=== PATIENT | female | born 1950 | race Caucasian/White ===

== ENCOUNTER 2016-08-03 10:12 | Outpatient (CLI) | payer OTHER | END 2016-08-03 10:13 | disposition home or self-care (01) | DX: M16.11 Unilateral primary osteoarthritis, right hip (principal); M25.751 Osteophyte, right hip ==

== ENCOUNTER 2017-07-12 11:15 | Outpatient (CLI) | payer MEDICARE, OTHER | END 2017-07-12 11:16 | disposition home or self-care (01) | LOC: SC 11:15 | PROVIDERS: ATTEND Internal Medicine Pulmonary Disease | DX: G47.33 Obstructive sleep apnea (adult) (pediatric) (principal) | CPT/HCPCS: 99203; G0463; 99212 ==

== ENCOUNTER 2017-08-26 13:22 | Outpatient (CLI) | payer MEDICARE, OTHER ==
--- NOTE | 2017-08-28 19:03 | DEXA Report ---
DEXA SCAN: 08/26/2017 CLINICAL INDICATION: Postmenopausal. TECHNIQUE: Dual energy x-ray absorptiometry (DXA) was performed on a Nu-B-2B system. Regions measured are the AP spine, femoral neck, and, if needed, forearm. COMPARISON: None. In accordance with the International Society for Clinical Densitometry (ISCD) guidelines, data from previous exams may be reanalyzed using current recommendations and techniques. This is done to allow a more accurate basis for comparison with the current study. FINDINGS Data for the lumbar spine is as follows: REGION BMD (g/cm/cm) T-SCORE Z-SCORE L1 1.012 -1.0 -0.5 L2 1.094 -0.9 -0.4 L3 1.291 0.8 1.3 L4 1.424 1.9 2.4 L1-L4 1.214 0.3 0.8 NOTE: All evaluable vertebrae are used for classification. Data for the hip is as follows: REGION BMD (g/cm/cm) T-SCORE Z-SCORE Neck 1.145 0.8 1.6 TOTAL 0.989 -0.1 0.3 NOTE: The femoral neck or total proximal femur, whichever is lowest, is used for classification. IMPRESSION WHO CLASSIFICATION BASED ON THE INTERNATIONAL REFERENCE STANDARD IS NORMAL. FRACTURE RISK IS NOT INCREASED. RECOMMENDATION: Patients with diagnosis of osteoporosis or osteopenia should have regular bone mineral density assessment. For those eligible for Medicare, routine testing is allowed once every 2 years. Testing frequency can be increased for patients who have rapidly progressing disease or for those who are receiving medical therapy to restore bone mass. COMMENT World Health Organization (WHO) definitions for osteoporosis and osteopenia: NORMAL BMD: T-score at 1.0 or higher, fracture risk is low. OSTEOPENIA BMD: T-score between 1.0 and -2.5, fracture risk is increased. OSTEOPOROSIS BMD: T-score at 2.5 or lower, fracture risk high. National Osteoporosis Foundation recommends: 1. Obtain adequate dietary calcium (at least 1200 mg per day) and vitamin D (400 -800 international units per day). 2. Participate, as appropriate, in regular weightbearing and muscle- strengthening exercise. 3. Avoid tobacco use and reduce alcohol and caffeine intake. 4. For more detailed information see the website at www.NOF.org. TD: 08/26/2017 14:47 NIKOS
== END 2017-08-26 13:23 | disposition home or self-care (01) ==
LOC: DI 13:22
PROVIDERS: ATTEND Physician Assistant
DX: N95.8 Other specified menopausal and perimenopausal disorders (principal)
CPT/HCPCS: 77080

== ENCOUNTER 2017-08-26 13:24 | Outpatient (CLI) | payer MEDICARE, OTHER ==
--- NOTE | 2017-08-27 18:02 | Mammography Report ---
DIGITAL SCREENING MAMMOGRAM: 08/26/2017 CLINICAL INDICATION: A 67-year-old nulliparous patient for screening. COMPARISON: 04/2014, 10/2012, 11/2006. TECHNIQUE: Routine CC and MLO projections were obtained of the breasts. FINDINGS: The breasts demonstrate scattered fibroglandular densities bilaterally. Coarse and punctate, typically benign calcifications are present. No suspicious masses, clustered microcalcifications, or regions of architectural distortion are identified. IMPRESSION: BENIGN FINDINGS. RECOMMENDATION: Routine annual screening unless otherwise clinically indicated. BI-RADS category 2 benign findings. STANDARD QUALIFYING STATEMENTS 1. This examination was reviewed with the aid of Computed-Aided Detection (CAD). 2. A negative or benign imaging report should not delay biopsy if clinically suspicious findings are present. Consider surgical consultation if warranted. More than 5% of cancers are not identified by imaging. 3. Dense breasts may obscure an underlying neoplasm. TD: 08/27/2017 18:01
== END 2017-08-26 13:25 | disposition home or self-care (01) ==
LOC: DI 13:24
PROVIDERS: ATTEND Physician Assistant
DX: Z12.31 Encounter for screening mammogram for malignant neoplasm of breast (principal); N95.8 Other specified menopausal and perimenopausal disorders
CPT/HCPCS: 77067

== ENCOUNTER 2017-09-13 05:39 | Emergency (ER) | payer MEDICARE, OTHER ==
[2017-09-13] MEDS ORDERED: SODIUM CHLORIDE 0.9% 1,000 ML IV ONE (05:53)
[2017-09-13 06:03] LABS: BASOPHILS # (AUTO) 0.1 10^3/uL (0.0-0.1); BASOPHILS % (AUTO) 1.3 %; EOSINOPHILS # (AUTO) 0.1 10^3/uL (0.0-0.7); EOSINOPHILS % (AUTO) 1.5 %; HGB - HEMOGLOBIN 14.5 g/dL (12.0-16.0); LYMPHOCYTES # (AUTO) 2.3 10^3/uL (1.5-3.5); LYMPHOCYTES % (AUTO) 39.4 %; MEAN CORPUSCULAR HGB CONC 32.9 g/dL (32.0-36.0); MEAN CORPUSCULAR VOLUME 91.2 fL (81.0-99.0); MEAN PLATELET VOLUME 8.4 fL (7.9-10.8); MONOCYTES # (AUTO) 0.4 10^3/uL (0.0-1.0); MONOCYTES % (AUTO) 7.3 %; NEUTROPHILS % (AUTO) 50.5 %; PLT - PLATELET COUNT 227 10^3/uL (130-450); RED BLOOD COUNT 4.82 10^6/uL (4.20-5.40); RED CELL DISTRIBUTION WIDTH 12.8 % (12.0-15.0); WHITE BLOOD COUNT 5.9 x10^3/uL (4.8-10.8)
[2017-09-13 06:16] LABS: ALBUMIN 4.5 g/dL (3.2-5.5); ALBUMIN/GLOBULIN RATIO 1.7 (1.0-2.2); BILIRUBIN,TOTAL 0.7 mg/dL (0.2-1.0); CALCIUM 9.3 mg/dL (8.5-10.3); CREATININE 0.7 mg/dL (0.4-1.0); MAGNESIUM 2.3 mg/dL (1.7-2.8); PHOSPHORUS 3.7 mg/dL (2.5-4.6); TOTAL PROTEIN 7.2 g/dL (6.7-8.2)
--- NOTE | 2017-09-13 06:28 | ED Physician Documentation ---
History of Present Illness - Stated complaint Stated Complaint: HEART FLUTTER - Chief complaint Chief Complaint: Cardiac - History obtained from History obtained from: Patient, Family - History of Present Illness Timing: Today - Additonal information Additional information: patient is a 67 year old female with a history of paroxysmal a fib. patient states that she felt her heart racing this morning and she felt like she was in a fib. patient states that she took her flecaineide but she didn't convert. ekg in triage showed a fib. Upon my initial evaluation patient had already been placed on a monitor and appeared to be in sinus rhythm. Patient denied any recent illness, alcohol consumption or other complaints. Review of Systems Ten Systems: 10 systems reviewed and negative Constitutional: denies: Fever Cardiac: reports: Palpitations. 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 HEENT: Tonsil/Adenoidectomy Derm: Skin cancer surgery - Present Medications Home Medications: Ambulatory Orders Medication Instructions Recorded Confirmed Aspirin [Aspir 81] 81 mg PO DAILY 02/20/13 05/18/14 Flecainide [Tambocar] 50 mg PO BID 02/20/13 05/18/14 Levothyroxine Sodium [Levoxyl] 112 mcg PO DAILY 02/20/13 05/18/14 Verapamil ER [Calan SA] 180 mg PO DAILY 02/20/13 05/18/14 Cholecalciferol (Vitamin D3) 5,000 unit PO DAILY 02/21/13 05/18/14 [Vitamin D] Naproxen [Aleve] 250 mg PO PRN 02/21/13 05/18/14 Oxybutynin [Ditropan] 5 mg PO BID 02/21/13 05/18/14 Vitamin B Complex [Vitamin B-100 1 each PO DAILY 02/21/13 05/18/14 Complex] [place] Oil/[place]-3 Fatty Acids PO DAILY 10/10/13 05/18/14 [Fish Oil 500 mg Softgel] - Allergies Allergies/Adverse Reactions: Allergies Allergy/AdvReac Type Severity Reaction Status Date / Time No Known Drug Allergies Allergy Verified 09/13/17 05:48 - Social History Does the pt smoke?: No Smoking Status: Never smoker Does the pt drink ETOH?: Yes PD ED PE NORMAL - Vitals Vital signs reviewed: Yes - General General: Alert and oriented X 3, No acute distress - HEENT HEENT: Atraumatic - Neck Neck: Supple, no meningeal sign - Cardiac Cardiac: RRR, No murmur - Respiratory Respiratory: No respiratory distress - Abdomen Abdomen: Soft - Derm Derm: Normal color, Warm and dry - Extremities Extremities: No deformity - Neuro Neuro: Alert and oriented X 3 Eye Opening: Spontaneous Motor: Obeys Commands Verbal: Oriented GCS Score: 15 Results - Vitals Vitals: Vital Signs - 24 hr 09/13/17 05:46 Temperature 36.4 C L Heart Rate 115 H Respiratory 21 Rate Blood Pressure 181/132 H O2 Saturation 96 Oxygen O2 Source Room air - EKG (time done) 0546 Rate: Rate (enter#) (108) Rhythm: Atrial fibrillation Intervals: Prolonged SD Ischemia: ST depression Compare to prior EKG: Changed from prior EKG 0608 Rate: Rate (enter#) (56) Rhythm: NSR [place]: Normal Intervals: Normal [place] QRS: Normal Ischemia: Normal ST segments Compare to prior EKG: Changed from prior EKG - Labs Labs: Laboratory Tests 09/13/17 09/13/17 09/13/17 05:54 05:54 05:54 WBC 5.9 RBC 4.82 Hgb 14.5 Hct 44.0 MCV 91.2 MCH 30.0 MCHC 32.9 RDW 12.8 Plt Count 227 MPV 8.4 Neut # 3.0 Lymph # 2.3 [place] # 0.4 Eos # 0.1 Baso # 0.1 Absolute Nucleated RBC 0.00 Nucleated RBC % 0.1 Sodium 136 Potassium 3.9 Chloride 103 Carbon Dioxide 26 Anion Gap 7.0 BUN 16 Creatinine 0.7 Estimated GFR (MDRD) 84 L Glucose 100 Calcium 9.3 Phosphorus 3.7 Magnesium 2.3 Total Bilirubin 0.7 AST 20 ALT 19 Alkaline Phosphatase 55 Troponin I < 0.04 Total Protein 7.2 Albumin 4.5 Globulin 2.7 Albumin/Globulin Ratio 1.7 Lipase 28 PD MEDICAL DECISION MAKING - ED course Complexity details: reviewed old records, reviewed results, re-evaluated patient , considered differential, d/w patient, d/w family ED course: patient was seen and examined at bedside. original ekg showed A-fib but patient had converted on her own. labs were drawn. patient was treated with a fluid bolus. Labs were drawn and repeat ekg showed normal sinus. Patient was htn but she had a history of htn. patient was given detailed discharge and follow up instructions. Patient and family felt comfortable with the plan and were stable for discharge with outpatient follow up. Departure - Departure Disposition: 01 Home, Self Care Clinical Impression: Episodic atrial fibrillation Condition: Good Instructions: Atrial Fibrillation Dc Follow-Up: Arline Longoria PA [Primary Care Provider] - Within 3 Days Comments: Your diagnostics today were within normal limits and you converted on your own/ with flecaineide. it is important that you stay well hydrated and avoid triggers (lack of sleep, caffeine, excessive alcohol). You blood pressure was elevated today in the emergency department. You should track your blood pressures over the next few days and follow up with your pmd. You may return to the emergency department at any time for new, worsening or uncontrollable symptoms.
[2017-09-13 06:37] VITALS: BP 133/87
== END 2017-09-13 06:42 | disposition home or self-care (01) ==
LOC: ED 05:39
DX: I48.0 Paroxysmal atrial fibrillation (principal); I10 Essential (primary) hypertension; Z79.82 Long term (current) use of aspirin
CPT/HCPCS: 36415; 80053; 83690; 83735; 84100; 84484; 85025; 93005; 96360; 99283; 99284

== ENCOUNTER 2017-10-01 12:38 | Outpatient (CLI) | payer MEDICARE, OTHER | END 2017-10-01 12:39 | disposition home or self-care (01) | LOC: RT 12:38 | PROVIDERS: ATTEND Nurse Practitioner Family | DX: I48.91 Unspecified atrial fibrillation (principal); I10 Essential (primary) hypertension | CPT/HCPCS: 93005 ==

== ENCOUNTER 2018-01-24 02:58 | Outpatient (CLI) | payer MEDICARE, OTHER | END 2018-01-24 02:59 | disposition critical access hospital (66) | LOC: EMS 02:58 | PROVIDERS: ATTEND Surgery | DX: R19.8 Other specified symptoms and signs involving the digestive system and abdomen (principal) | CPT/HCPCS: A0425; A0429 ==

== ENCOUNTER 2018-01-24 03:20 | Emergency (ER) | payer MEDICARE, OTHER ==
--- NOTE | 2018-01-24 03:34 | ED Physician Documentation ---
PD HPI ABD PAIN - Stated complaint Stated Complaint: EPIGASTRIC PRESSURE - History obtained from History obtained from: Patient - History of Present Illness Timing - onset: How many hours ago (3) Timing - details: Abrupt onset Pain level max: 8 Pain level now: 5 Quality: Pain Location: RUQ, Epigastric, LUQ Radiation: Chest Improved by: Other (nothing) Worsened by: Other (no exacerbating factors) Associated symptoms: No: Fever, Nausea, Vomiting Similar symptoms before: Has not had sx before Recently seen: Not recently seen - Additional information Additional information: BIBA. patient was asleep in bed at home when spouse came to bed, waking patient. patient then developed pain across upper abdomen that radiated to lower midline chest associated with dyspnea. Review of Systems Constitutional: reports: Reviewed and negative Respiratory: reports: Dyspnea GI: reports: Abdominal Pain. denies: Nausea, Vomiting Musculoskeletal: denies: Extremity swelling PD PAST MEDICAL HISTORY - Past Medical History Past Medical History: Yes Cardiovascular: Atrial fibrillation - Present Medications Home Medications: Ambulatory Orders Medication Instructions Recorded Confirmed Aspirin [Aspir 81] 81 mg PO DAILY 02/20/13 05/18/14 Flecainide [Tambocar] 50 mg PO BID 02/20/13 05/18/14 Levothyroxine Sodium [Levoxyl] 112 mcg PO DAILY 02/20/13 05/18/14 Verapamil ER [Calan SA] 180 mg PO DAILY 02/20/13 05/18/14 Cholecalciferol (Vitamin D3) 5,000 unit PO DAILY 02/21/13 05/18/14 [Vitamin D] Naproxen [Aleve] 250 mg PO PRN 02/21/13 05/18/14 Oxybutynin [Ditropan] 5 mg PO BID 02/21/13 05/18/14 Vitamin B Complex [Vitamin B-100 1 each PO DAILY 02/21/13 05/18/14 Complex] [place] Oil/[place]-3 Fatty Acids PO DAILY 10/10/13 05/18/14 [Fish Oil 500 mg Softgel] - Allergies Allergies/Adverse Reactions: Allergies Allergy/AdvReac Type Severity Reaction Status Date / Time No Known Drug Allergies Allergy Verified 01/24/18 03:22 - Living Situation Living Situation: reports: With spouse/s.o. Living Arrangement: reports: At home - Social History Does the pt smoke?: No PD ED PE NORMAL - Vitals Vital signs reviewed: Yes - General General: Alert and oriented X 3, No acute distress, Well developed/nourished - Cardiac Cardiac: RRR, No murmur - Respiratory Respiratory: No respiratory distress, Clear bilaterally - Abdomen Abdomen: Soft, Non tender Results - Vitals Vitals: Vital Signs - 24 hr 01/24/18 01/24/18 01/24/18 03:22 03:33 04:30 Temperature 36.6 C Heart Rate 56 L 59 L 56 L Respiratory 18 15 18 Rate Blood Pressure 191/102 H 165/96 H 158/79 H O2 Saturation 98 98 96 01/24/18 06:30 Temperature Heart Rate 62 Respiratory 12 Rate Blood Pressure 122/69 O2 Saturation 97 Oxygen O2 Source Room air - Labs Labs: Laboratory Tests 01/24/18 01/24/18 01/24/18 03:36 03:36 03:36 WBC 6.9 RBC 4.30 Hgb 13.7 Hct 39.2 MCV 91.3 MCH 31.9 H MCHC 34.9 RDW 12.4 Plt Count 220 MPV 9.0 Neut # (Auto) 4.3 Lymph # (Auto) 2.0 [place] # (Auto) 0.4 Eos # (Auto) 0.1 Baso # (Auto) 0.1 Absolute Nucleated RBC 0.00 Nucleated RBC % 0.0 D-Dimer Sodium 138 Potassium 3.9 Chloride 104 Carbon Dioxide 24 Anion Gap 10.0 BUN 20 Creatinine 0.8 Estimated GFR (MDRD) 72 L Glucose 110 H Calcium 9.0 Total Bilirubin 0.8 AST 111 H ALT 68 H Alkaline Phosphatase 50 Troponin I < 0.04 Total Protein 6.5 L Albumin 3.9 Globulin 2.6 Albumin/Globulin Ratio 1.5 Lipase 36 01/24/18 01/24/18 03:36 05:53 WBC RBC Hgb Hct MCV MCH MCHC RDW Plt Count MPV Neut # (Auto) Lymph # (Auto) [place] # (Auto) Eos # (Auto) Baso # (Auto) Absolute Nucleated RBC Nucleated RBC % D-Dimer 266.6 H Sodium Potassium Chloride Carbon Dioxide Anion Gap BUN Creatinine Estimated GFR (MDRD) Glucose Calcium Total Bilirubin AST ALT Alkaline Phosphatase Troponin I < 0.04 Total Protein Albumin Globulin Albumin/Globulin Ratio Lipase - Rads (name of study) chest xray Radiology: Prelim report reviewed, See rad report PD MEDICAL DECISION MAKING - ED course Complexity details: reviewed results, re-evaluated patient, considered differential, d/w patient ED course: patients symptoms had already improved significantly en route to ED and continued to improve in ED without specific intervention. EKG, CXR, and blood tests are reassuring including 2-hour repeat troponin. She has an appointment scheduled with her audio technician in 2 days. - Sepsis Event Vital Signs: Vital Signs - 24 hr 01/24/18 01/24/18 01/24/18 03:22 03:33 04:30 Temperature 36.6 C Heart Rate 56 L 59 L 56 L Respiratory 18 15 18 Rate Blood Pressure 191/102 H 165/96 H 158/79 H O2 Saturation 98 98 96 01/24/18 06:30 Temperature Heart Rate 62 Respiratory 12 Rate Blood Pressure 122/69 O2 Saturation 97 Oxygen O2 Source Room air Departure - Departure Disposition: 01 Home, Self Care Clinical Impression: Abdominal pain, Chest pain Condition: Good Instructions: ED Abdominal Pain Unkn Cause, ED Chest Pain Atypical Unkn Cause Comments: Follow up with your audio technician this week as scheduled Discharge Date/Time: 01/24/18 07:17
[2018-01-24 03:46] LABS: BASOPHILS # (AUTO) 0.1 10^3/uL (0.0-0.1); BASOPHILS % (AUTO) 1.3 %; EOSINOPHILS # (AUTO) 0.1 10^3/uL (0.0-0.7); EOSINOPHILS % (AUTO) 1.2 %; HGB - HEMOGLOBIN 13.7 g/dL (12.0-16.0); LYMPHOCYTES % (AUTO) 29.3 %; MEAN CORPUSCULAR HEMOGLOBIN 31.9 pg (27.0-31.0); MEAN CORPUSCULAR HGB CONC 34.9 g/dL (32.0-36.0); MEAN CORPUSCULAR VOLUME 91.3 fL (81.0-99.0); MONOCYTES # (AUTO) 0.4 10^3/uL (0.0-1.0); MONOCYTES % (AUTO) 6.4 %; NEUTROPHILS # (AUTO) 4.3 10^3/uL (1.5-6.6); NEUTROPHILS % (AUTO) 61.8 %; PLT - PLATELET COUNT 220 10^3/uL (130-450); RED CELL DISTRIBUTION WIDTH 12.4 % (12.0-15.0); WHITE BLOOD COUNT 6.9 x10^3/uL (4.8-10.8)
[2018-01-24 04:03] LABS: ALBUMIN 3.9 g/dL (3.2-5.5); ALBUMIN/GLOBULIN RATIO 1.5 (1.0-2.2); BILIRUBIN,TOTAL 0.8 mg/dL (0.2-1.0); CREATININE 0.8 mg/dL (0.4-1.0); TOTAL PROTEIN 6.5 g/dL (6.7-8.2)
--- NOTE | 2018-01-24 04:05 | XRAY Report ---
Reason: chest pain Procedure Date: 01/24/2018 Accession Number: [id number] / [id number] Procedure: XR - Chest 2 View X-Ray CPT Code: 87356 FULL RESULT: EXAM: CHEST RADIOGRAPHY EXAM DATE: 01/24/2018 03:59 AM. CLINICAL HISTORY: Chest pain. COMPARISON: XR CHEST PA AND LAT 09/13/2007 7:52 PM. TECHNIQUE: 2 views. FINDINGS: Lungs/Pleura: No alveolar consolidation or pleural effusion seen. No pneumothorax. Mediastinum: Heart size is normal. Tortuous aorta. Other: None. IMPRESSION: 1. No acute abnormality seen in the chest. RADIA
[2018-01-24] MEDS ORDERED: PROPAFENONE 150 MG TABLET PO STA (06:16)
[2018-01-24 07:14] VITALS: BP 122/69
== END 2018-01-24 07:17 | disposition home or self-care (01) ==
LOC: EDUNIT# → ED 03:20
DX: R10.9 Unspecified abdominal pain (principal); R07.9 Chest pain, unspecified; Z79.82 Long term (current) use of aspirin
CPT/HCPCS: 36415; 71046; 80053; 83690; 84484; 85025; 85379; 93005; 99283; A9270

== ENCOUNTER 2018-02-23 14:50 | Outpatient (CLI) | payer MEDICARE, OTHER ==
--- NOTE | 2018-02-23 23:05 | Ultrasound Report ---
Reason: ELEVATED LFTS Procedure Date: 02/23/2018 Accession Number: [id number] / [id number] Procedure: US - Abdomen Limited CPT Code: FULL RESULT: EXAM: ABDOMEN ULTRASOUND LIMITED, RUQ EXAM DATE: 02/23/2018 03:08 PM. CLINICAL HISTORY: ELEVATED LFTS. COMPARISON: ABD/PEL 03/28/2009 9:14 AM 03/22/2011 4:11 PM. TECHNIQUE: Real-time scanning was performed with static images obtained. FINDINGS: Liver: Normal in size and echotexture. 16.3 cm. Main portal vein flow: Hepatopetal. Gallbladder: Surgically absent. Biliary System: CBD measures 7 mm. No intrahepatic or extrahepatic ductal dilatation. A shadowing region is seen in the quynh hepatis, likely correlating with multiple surgical clips seen on previous CT. Other: None. IMPRESSION: No evidence of biliary obstruction. No focal liver lesion or fatty infiltration. RADIA
== END 2018-02-23 14:51 | disposition home or self-care (01) ==
LOC: DI 14:50
PROVIDERS: ATTEND Nurse Practitioner Family
DX: R94.5 Abnormal results of liver function studies (principal)
CPT/HCPCS: 76705

== ENCOUNTER 2018-10-26 19:43 | Outpatient (CLI) | payer MEDICARE, OTHER ==
--- NOTE | 2018-11-01 10:25 | Ultrasound Report ---
Reason: ABDOMINAL MASS Procedure Date: 10/26/2018 Accession Number: [id number] / [id number] Procedure: US - Abdomen Limited CPT Code: FULL RESULT: EXAM: ABDOMEN ULTRASOUND LIMITED, RUQ EXAM DATE: 10/26/2018 07:59 PM. CLINICAL HISTORY: Abdominal mass. COMPARISON: ABDOMEN LIMITED 02/23/2018 3:[address] ABDOMEN W TECHNIQUE: Real-time scanning was performed with static images obtained. FINDINGS: At the site of the left anterior abdominal subcutaneous mass, there is a hypoechoic, hypervascular 1.7 x 1.2 x 2.5 cm mass corresponding to the CT finding. No additional collection, hernia or adenopathy. IMPRESSION: 1. Palpable finding corresponds to a hypervascular soft tissue hypoechoic 1.7 x 1.2 x 2.5 cm mass. Both malignant and nonmalignant processes are on the differential. 2. No collection, adenopathy or hernia. RADIA
== END 2018-10-26 19:44 | disposition home or self-care (01) ==
LOC: DI 19:43
PROVIDERS: ATTEND Nurse Practitioner Family
DX: R19.00 Intra-abdominal and pelvic swelling, mass and lump, unspecified site (principal)
CPT/HCPCS: 76705

== ENCOUNTER 2019-03-29 01:40 | Outpatient (CLI) | payer MEDICARE, OTHER | END 2019-03-29 01:41 | disposition critical access hospital (66) | LOC: EMS 01:40 | PROVIDERS: ATTEND Surgery | DX: R00.0 Tachycardia, unspecified (principal); R07.89 Other chest pain | CPT/HCPCS: A0425; A0427 ==

== ENCOUNTER 2019-03-29 02:06 | Emergency (ER) | payer MEDICARE, OTHER ==
[2019-03-29] MEDS ORDERED: SODIUM CHLORIDE 0.9% 1,000 ML IV ONE (02:21)
[2019-03-29] MEDS ORDERED: diltiaZEM INJ 5 MG/ML VIAL IVP STA (02:21)
[2019-03-29] MEDS ORDERED: PROCAINAMIDE 1,000 MG in SODIUM CHLORIDE 0.9% 240 ML IV STA (02:21)
[2019-03-29 02:38] LABS: BASOPHILS # (AUTO) 0.1 10^3/uL (0.0-0.1); EOSINOPHILS # (AUTO) 0.1 10^3/uL (0.0-0.7); EOSINOPHILS % (AUTO) 1.9 %; HGB - HEMOGLOBIN 13.9 g/dL (12.0-16.0); LYMPHOCYTES # (AUTO) 2.2 10^3/uL (1.5-3.5); LYMPHOCYTES % (AUTO) 35.6 %; MEAN CORPUSCULAR HEMOGLOBIN 31.7 pg (27.0-31.0); MEAN CORPUSCULAR HGB CONC 34.8 g/dL (32.0-36.0); MEAN CORPUSCULAR VOLUME 91.3 fL (81.0-99.0); MEAN PLATELET VOLUME 9.5 fL (7.9-10.8); MONOCYTES # (AUTO) 0.5 10^3/uL (0.0-1.0); MONOCYTES % (AUTO) 8.5 %; NEUTROPHILS # (AUTO) 3.3 10^3/uL (1.5-6.6); NEUTROPHILS % (AUTO) 52.7 %; PLT - PLATELET COUNT 216 10^3/uL (130-450); RED BLOOD COUNT 4.38 10^6/uL (4.20-5.40); RED CELL DISTRIBUTION WIDTH 11.9 % (12.0-15.0); WHITE BLOOD COUNT 6.2 x10^3/uL (4.8-10.8)
[2019-03-29 02:50] LABS: ALBUMIN 3.9 g/dL (3.2-5.5); ALBUMIN/GLOBULIN RATIO 1.4 (1.0-2.2); BILIRUBIN,TOTAL 0.7 mg/dL (0.2-1.0); CREATININE 0.7 mg/dL (0.4-1.0); TOTAL PROTEIN 6.7 g/dL (6.7-8.2)
[2019-03-29 03:03] VITALS: BP 125/85
--- NOTE | 2019-03-29 03:15 | ED Physician Documentation ---
PD HPI CHEST PAIN - Stated complaint Stated Complaint: AFIB - Chief complaint Chief Complaint: Cardiac - History obtained from History obtained from: Patient, EMS - History of Present Illness Timing - onset: How many hours ago (2) Timing - onset during: Sleep Timing - duration: Hours (2) Timing - details: Abrupt onset, Still present Quality: Pressure Location: Substernal Improved by: No: Other medication (tried a flecainide tablet and waited an hour) Associated symptoms: Shortness of air, Palpitations Similar symptoms before: Diagnosis (paroxysmal atrial fib, about 3 times per year and most often improves with dose oral meds at home.) Recently seen: Not recently seen Review of Systems Constitutional: denies: Fever, Chills Nose: denies: Rhinorrhea / runny nose, Congestion Throat: denies: Sore throat Cardiac: reports: Chest pain / pressure, Palpitations. denies: Pedal edema, Calf pain Respiratory: reports: Dyspnea. denies: Cough GI: denies: Abdominal Pain, Nausea, Vomiting, Diarrhea : denies: Dysuria Skin: denies: Rash, Lesions Neurologic: denies: Generalized weakness, Focal weakness, Numbness, Near syncope Endocrine: reports: Easy bruising / bleeding Immunocompromised: denies: Immunocompromised PD PAST MEDICAL HISTORY - Past Medical History Past Medical History: Yes Cardiovascular: Atrial fibrillation Respiratory: Sleep apnea, CPAP use Endocrine/Autoimmune: HyPOthyroidism GI: Colon polyps, Other : Incontinence HEENT: None Psych: Depression, Anxiety Musculoskeletal: Osteoarthritis Derm: None - Past Surgical History Past Surgical History: Yes General: Cholecystectomy, Colonoscopy 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 HEENT: Tonsil/Adenoidectomy Derm: Skin cancer surgery - Present Medications Home Medications: Ambulatory Orders Medication Instructions Recorded Confirmed Levothyroxine Sodium [Levoxyl] 112 mcg PO DAILY 02/20/13 03/29/19 Verapamil ER [Calan SA] 180 mg PO DAILY 02/20/13 03/29/19 Cholecalciferol (Vitamin D3) 5,000 unit PO DAILY 02/21/13 03/29/19 [Vitamin D] Oxybutynin [Ditropan] 5 mg PO BID 02/21/13 03/29/19 Vitamin B Complex [Vitamin B-100 1 each PO DAILY 02/21/13 03/29/19 Complex] [place] Oil/[place]-3 Fatty Acids 1 cap PO DAILY 10/10/13 03/29/19 [Fish Oil 500 mg Softgel] Apixaban [Eliquis] 5 mg PO BID 03/29/19 03/29/19 Atorvastatin Calcium 10 mg PO DAILY 03/29/19 03/29/19 Escitalopram Oxalate [Lexapro] 5 mg PO DAILY 03/29/19 03/29/19 Propafenone HCl 150 mg PO TID 03/29/19 03/29/19 Tramadol HCl 50 mg PO BID 03/29/19 03/29/19 - Allergies Allergies/Adverse Reactions: Allergies Allergy/AdvReac Type Severity Reaction Status Date / Time No Known Drug Allergies Allergy Verified 03/29/19 02:18 - Social History Does the pt smoke?: No Smoking Status: Never smoker Does the pt drink ETOH?: Yes Does the pt have substance abuse?: No - POLST Patient has POLST: No PD ED PE NORMAL - Vitals Vital signs reviewed: Yes - General General: Alert and oriented X 3, No acute distress, Well developed/nourished - HEENT HEENT: Pharynx benign - Neck Neck: Supple, no meningeal sign, No adenopathy - Cardiac Cardiac: No murmur. No: RRR (irregular and just mildly tachycardic) - Respiratory Respiratory: Clear bilaterally - Abdomen Abdomen: Soft, Non tender - Back Back: No CVA TTP - Derm Derm: Normal color, Warm and dry - Extremities Extremities: No tenderness to palpate, Normal ROM s pain, No edema, No calf tenderness / cord - Neuro Neuro: Alert and oriented X 3, No motor deficit, Normal speech Results - Vitals Vitals: Vital Signs - 24 hr 03/29/19 03/29/19 03/29/19 02:10 02:50 03:00 Temperature 36.8 C 36.7 C Heart Rate 116 H 91 58 L Respiratory 20 16 15 Rate Blood Pressure 148/98 H 131/87 H 125/85 H Blood Pressure 148/98 H [Right] O2 Saturation 96 96 96 Oxygen O2 Source Room air - EKG (time done) 02:09 Rate: Rate (enter#) (109) Rhythm: Atrial fibrillation [place]: Normal Ischemia: Normal ST segments, Non specific changes. No: ST elevation c/w ischemia, ST depression 03:00 Rate: Rate (enter#) (51) Rhythm: Sinus bradycardia [place]: Normal Intervals: Normal [place] QRS: Normal Ischemia: Normal ST segments. No: ST elevation c/w ischemia, ST depression Compare to prior EKG: Changed from prior EKG - Labs Labs: Laboratory Tests 03/29/19 03/29/19 02:30 02:30 WBC 6.2 RBC 4.38 Hgb 13.9 Hct 40.0 MCV 91.3 MCH 31.7 H MCHC 34.8 RDW 11.9 L Plt Count 216 MPV 9.5 Neut # (Auto) 3.3 Lymph # (Auto) 2.2 [place] # (Auto) 0.5 Eos # (Auto) 0.1 Baso # (Auto) 0.1 Absolute Nucleated RBC 0.00 Nucleated RBC % 0.0 Sodium 136 Potassium 3.9 Chloride 101 Carbon Dioxide 26 Anion Gap 9.0 BUN 22 H Creatinine 0.7 Estimated GFR (MDRD) 83 L Glucose 108 H Calcium 9.0 Magnesium 2.0 Total Bilirubin 0.7 AST 24 ALT 25 Alkaline Phosphatase 42 Total Protein 6.7 Albumin 3.9 Globulin 2.8 Albumin/Globulin Ratio 1.4 Lipase 36 PD MEDICAL DECISION MAKING - ED course Complexity details: re-evaluated patient (Paroxysmal atrial fibrillation without any dyspnea nor signs of heart failure. She is on a blood thinner. We will give some IV fluids and dose of diltiazem to slow her down and then try antiarrhythmic with procainamide. She states she has not had cardioversion in the past and it is been treated with IV medications.), considered differential, d/w patient ED course: The rhythm changes early on in the procainamide infusion. The infusion is stopped and repeat EKG is done. Her vitals are good. She will be discharged home. Departure - Departure Disposition: 01 Home, Self Care Clinical Impression: Episodic atrial fibrillation Condition: Stable Record reviewed to determine appropriate education?: Yes Instructions: ED Afib Follow-Up: Arline Longoria PA [Primary Care Provider] - Comments: Stay well-hydrated. Continue usual medications. Contact your stone layer later today or tomorrow to let them know of the episode.
== END 2019-03-29 03:32 | disposition home or self-care (01) ==
LOC: EDUNIT# → ED 02:06
DX: I48.0 Paroxysmal atrial fibrillation (principal); Z79.01 Long term (current) use of anticoagulants
CPT/HCPCS: 36415; 80053; 83690; 83735; 85025; 93005; 96365; 96375; 99284; 99285; J2690

== ENCOUNTER 2019-06-29 08:44 | Outpatient (CLI) | payer MEDICARE, OTHER ==
--- NOTE | 2019-06-30 09:56 | Mammography Report ---
Reason: ROUTINE MAMMO Procedure Date: 06/29/2019 Accession Number: [id number] / [id number] Procedure: ROBERTO - Screening Mammo w/Jose CPT Code: Final Report FULL RESULT: EXAM: Screening Mammo w/Jose DATE: 06/29/2019 9:28 AM CLINICAL HISTORY: Screening encounter. History of nulliparity. Personal history of ovarian cancer and colon cancer. TECHNIQUE: (B) - Bilateral CC and MLO views were obtained. COMPARISON: 08/26/2017 through 11/09/2012. PARENCHYMAL PATTERN: (A) - The breast(s) demonstrate(s) scattered fibroglandular densities. FINDINGS: There are no suspicious masses, calcifications, or areas of distortion. IMPRESSION: Negative examination. BI-RADS category 1. RECOMMENDATION: (ANNUAL) - Recommend routine annual screening mammography. BI-RADS CATEGORY: (1) - Negative. STANDARD QUALIFYING STATEMENTS: 1. This examination was not reviewed with the aid of Computer-Aided Detection (CAD). 2. A negative or benign imaging report should not preclude biopsy if clinically suspicious findings are present. 3. Dense breasts may obscure an underlying neoplasm. 4. This examination was reviewed with the aid of 3D breast imaging (tomosynthesis).
== END 2019-06-29 08:45 | disposition home or self-care (01) ==
LOC: DI 08:44
PROVIDERS: ATTEND Physician Assistant
DX: Z12.31 Encounter for screening mammogram for malignant neoplasm of breast (principal)
CPT/HCPCS: 77063; 77067

== ENCOUNTER 2019-08-01 16:47 | Outpatient (CLI) | payer MEDICARE, OTHER ==
--- NOTE | 2019-08-01 14:21 | SLEEP CARE CONSULTATION ---
Information from patient questionnaire entered by Concepción Erazo. I have reviewed and concur with the information entered by Concepción Erazo. This document represents the service I personally performed and the decisions made by me, Magnolia Frausto MD, [facility]. History of Present Illness Previous diagnosis: Mild, Obstructive Sleep Apnea-Hypopnea Syndrome AHI: 10.1 Reason for follow up: annual Equipment type: CPAP Equipment obtained from: [employer] HPI additional information: To minimize the risk of COVID-19 exposure, the patient has requested and consented to this telephone visit. The patient also agrees to having her insurance billed. HPI: Ms. Boucher was called today to follow up on the nasal CPAP therapy. She was diagnosed to have mild obstructive sleep apnea-hypopnea syndrome. The patient wears with a Respironics DreamWear nasal cushion mask. She reports using the device nightly and all through the night. The compliance data show usage in 180 out of the past 180 nights, averaging 8.2 hours a night. The > 4 hour compliance rate for the past 99 days is 100%. She complained of the headgear sliding off at night but no particular problem with the device such as soreness on the face, dry nose, epistaxis, nasal congestion or headache. She thinks that the pressure of 10 cmH2O is comfortable (lowered from 12 cmH2O two years ago). On the CPAP therapy she notices improvement in her sleep quality, and that she wakes up feeling fresher in the morning and more awake/alert during the day. Her notices no snore at all. The average residual AHI is 1.5 (was 0.6 on 12 cmH2O); and air leak, 0 L/min. CPAP Compliance Data - Data Reviewed with Patient Average duration of nightly device use: 8H 11M Compliance rate %: 99 Current pressure setting (cmH2O): 10 Subjective Initial [place] Sleepiness Scale score: 7 Allergies and Home Medications Drug allergies reviewed: Yes Home medication list reviewed: Yes Review of Systems Review of systems same as previous: Yes Physical Exam Height: 5 ft 5 in Impression and Plan IMPRESSION: 1. Obstructive Sleep Apnea-Hypopnea Syndrome, mild (AHI was 10.1) with the patient doing well on nasal CPAP therapy. She has excellent compliance and significant clinical improvement. The current pressure appears effective and comfortable. The Respironics DreamWear nasal cushion mask is not fitting too well. Overall, she is very satisfied with treatment and plans to continue with it long-term. Because the residual AHI is still very low, I will lower the pressure further. PLAN: 1. Prescription made to set the device as an autoCPAP with pressure 8 - 10 cmH2 O. 2. Try to lose weight 3. Try ResMed N30i mask. 4. Return in one year for follow up or earlier if there is any problem with the treatment. Visit Type: Telehealth Phone Location of Provider: Home Patient agrees and consents to this telehealth visit type: Yes Time Spent with Patient (minutes): 10 Provider Statement: I spent 100% of the Telehealth Phone Call with the patient with greater than 50% spent counseling the patient and coordination of care.
== END 2019-08-01 16:48 | disposition home or self-care (01) ==
LOC: SC 16:47
PROVIDERS: ATTEND Internal Medicine Pulmonary Disease
DX: G47.33 Obstructive sleep apnea (adult) (pediatric) (principal)

== ENCOUNTER 2020-03-07 13:18 | Outpatient (CLI) | payer MEDICARE, OTHER | END 2020-03-07 13:19 | disposition home or self-care (01) | LOC: RT 13:18 | PROVIDERS: ATTEND Internal Medicine Cardiovascular Disease | DX: I48.91 Unspecified atrial fibrillation (principal) | CPT/HCPCS: 93005 ==

== ENCOUNTER 2020-06-06 10:19 | Day surgery (SDC) | payer MEDICARE, OTHER ==
[2020-06-06] MEDS ORDERED: LACTATED RINGERS 1,000 ML IV ONE (11:06)
--- NOTE | 2020-06-06 11:40 | ANESTHESIA ---
Pre-Anesthesia VS, & Labs - Diagnosis colon cancer - Procedure colonoscopy Vital Signs: Temp Pulse Resp BP Pulse Ox 36.5 C 51 L 16 125/74 96 06/06/20 10:15 06/06/20 10:15 06/06/20 10:15 06/06/20 10:15 06/06/20 10:15 Height: 5 ft 5 in Weight (kg): 96.9 kg Body Mass Index: 35.5 BMI Classification: Obese - NPO >8 hours - Is Patient ?: No Home Medications and Allergies Home Medications: Ambulatory Orders Ascorbic Acid [Vitamin C] 1,000 mg PO DAILY 05/30/20 Cinnamon 1,200 mg PO DAILY 05/30/20 D-Mannose [Mannxtra] 500 gm PO BID 05/30/20 Fluticasone [Flonase] 1 sprays SADA BID 05/30/20 L. Acidophilus,Casei,Rhamnosus [Bio-K Plus Dr 50 Billion Cap] 1 each PO DAILY 05/30/20 Multivit-Min/Vit C/Herb No.124 [Airborne Chewable Tablet] 1 each PO DAILY 05/30/20 Ondansetron Odt [Zofran Odt] 4 mg TL Q6H PRN 05/30/20 Phenazopyridine HCl [Pyridium] 200 mg PO PRN PRN 05/30/20 Tylenol Pm 1 tab PO QPM 05/30/20 estradioL vaginal [Estrace vaginal] 2 gm VG ONCE 05/30/20 Levothyroxine Sodium [Levoxyl] 112 mcg PO DAILY 02/20/13 Verapamil ER [Calan SA] 240 mg PO DAILY 02/20/13 Cholecalciferol (Vitamin D3) [Vitamin D] 5,000 unit PO DAILY 02/21/13 Oxybutynin [Ditropan] 5 mg PO BID 02/21/13 [place] Oil/Ash-3 Fatty Acids [Fish Oil 500 mg Softgel] 1 cap PO DAILY 10/10/13 Apixaban [Eliquis] 5 mg PO BID 03/29/19 Atorvastatin Calcium 10 mg PO DAILY 03/29/19 Escitalopram Oxalate [Lexapro] 5 mg PO DAILY 03/29/19 Propafenone HCl 150 mg PO TID 03/29/19 Ascorbic Acid [Vitamin C] 1,000 mg PO DAILY 05/30/20 Cinnamon 1,200 mg PO DAILY 05/30/20 D-Mannose [Mannxtra] 500 gm PO BID 05/30/20 Fluticasone [Flonase] 1 sprays SADA BID 05/30/20 L. Acidophilus,Casei,Rhamnosus [Bio-K Plus Dr 50 Billion Cap] 1 each PO DAILY 05/30/20 Multivit-Min/Vit C/Herb No.124 [Airborne Chewable Tablet] 1 each PO DAILY 05/30/20 Ondansetron Odt [Zofran Odt] 4 mg TL Q6H PRN 05/30/20 Phenazopyridine HCl [Pyridium] 200 mg PO PRN PRN 05/30/20 Tylenol Pm 1 tab PO QPM 05/30/20 estradioL vaginal [Estrace vaginal] 2 gm VG ONCE 05/30/20 Allergies/Adverse Reactions: Allergies Allergy/AdvReac Type Severity Reaction Status Date / Time adhesive Allergy Rash Verified 05/30/20 12:32 sulfamethoxazole Allergy Itching Verified 05/30/20 12:32 [From Bactrim] trimethoprim [From Bactrim] Allergy Itching Verified 05/30/20 12:32 Anes History & Medical History - Anesthetic History Anesthesia Complications: reports: No previous complications - Medical History Cardiovascular: reports: Hypertension, High cholesterol, Atrial fibrillation Pulmonary: reports: Sleep apnea, CPAP use Gastrointestinal: reports: Colon polyps, Diverticulitis, Other Urinary: reports: Incontinence, Chronic bladder infection Musculoskeletal: reports: Osteoarthritis Endocrine/Autoimmune: reports: HyPOthyroidism Blood Disorders: reports: None Skin: reports: Other Smoking Status: Never smoker History of Cancer?: Yes - Surgical History General: Cholecystectomy, Colonoscopy Eyes Ears Nose Throat (EENT): Tonsil/Adenoidectomy Gynecologic: Hysterectomy Orthopedic: Hip replacement, Arthroscopic surgery Dermatologic: Skin cancer surgery Exam General: Alert Dental: WNL Mouth Opening: Greater than 4 Fingerbreadths Mallampati classification: II Thyromental Distance: greater than 6 cm Respiratory: Lungs clear Cardiovascular: Regular rate Plan Anesthesia Type: MAC Consent for Procedure(s) Verified and Reviewed: Yes Code Status: Attempt Resuscitation ASA classification: 2-Mild systemic disease Is this case an emergency?: No
[2020-06-06] MEDS ORDERED: KETAMINE 500 MG/10 ML VIAL ONE (11:55)
[2020-06-06] MEDS ORDERED: MIDAZOLAM 2 MG/2 ML VIAL ONE (11:55)
[2020-06-06] MEDS ORDERED: PROPOFOL 500 MG/50 ML 500 MG/50 ML VIAL ONE (11:55)
[2020-06-06] MEDS ORDERED: LIDOCAINE-MPF 2% 5 ML VIAL ONE (11:57)
[2020-06-06] MEDS ORDERED: LACTATED RINGERS 600 ML IV ONE (12:09)
--- NOTE | 2020-06-06 12:17 | ANESTHESIA POST OP EVALUATION ---
Anesthesia Post Eval - Post Anesthesia Eval Vitals: Last Vital Signs Temp 36.8 C 06/06/20 12:09 Pulse 45 L 06/06/20 12:15 Resp 16 06/06/20 12:15 BP 133/77 H 06/06/20 12:15 Pulse Ox 98 06/06/20 12:15 CV Function Including HR & BP: positive: Stable Pain Control: positive: Satisfactory Nausea & Vomiting: positive: Negative Mental Status: positive: Patient Participates Respiratory Status: Airway Patent Hydration Status: Satisfactory Anesthesia Complications: positive: None
[2020-06-06 12:42] VITALS: BP 136/61
== END 2020-06-06 10:20 | disposition home or self-care (01) ==
LOC: SDS 10:19
PROVIDERS: ATTEND Surgery
DX: Z12.11 Encounter for screening for malignant neoplasm of colon (principal); Z85.038 Personal history of other malignant neoplasm of large intestine; Z86.010 Personal history of colon polyps; I10 Essential (primary) hypertension; I48.91 Unspecified atrial fibrillation; G47.30 Sleep apnea, unspecified; E78.5 Hyperlipidemia, unspecified; E03.9 Hypothyroidism, unspecified; N39.41 Urge incontinence; E66.9 Obesity, unspecified; Z68.35 Body mass index [BMI] 35.0-35.9, adult; Z85.44 Personal history of malignant neoplasm of other female genital organs; Z79.01 Long term (current) use of anticoagulants; Z79.899 Other long term (current) drug therapy; Z79.1 Long term (current) use of non-steroidal anti-inflammatories (NSAID); Z79.82 Long term (current) use of aspirin
CPT/HCPCS: G0105; J7120

== ENCOUNTER 2020-07-26 14:02 | Outpatient (CLI) | payer MEDICARE, OTHER ==
--- NOTE | 2020-07-26 14:28 | SLEEP CARE CONSULTATION ---
Information from patient questionnaire entered by David Lawrence. I have reviewed and concur with the information entered by David Lawrence. This document represents the service I personally performed and the decisions made by , Laina Rosenberg ARNP. History of Present Illness Service Date and Time: 07/26/2020 1402 Previous diagnosis: Mild, Obstructive Sleep Apnea-Hypopnea Syndrome AHI: 10.1 Reason for follow up: annual (Last seen 07/2019) Equipment type: CPAP Equipment obtained from: [employer] (getting supplies as needed) Mask style: Nasal Mask brand: Respironics Backup mask available: No (will keep mask when replaced) Last cushion change: several months Year and Where: 2007 [facility] additional information: CHASE ALSTON was diagnosed to have mild, AHI 10.1, obstructive sleep apnea- hypopnea syndrome and returned today for CPAP therapy annual follow-up. CPAP Compliance Data - Data Reviewed with Patient Average duration of nightly device use: 8 h 31 min Compliance rate %: 99 Current pressure setting (cmH2O): 10 Average residual AHI: 1.2 Subjective Patient concerns: reports: mask leak noise. denies: aerophagia, mask discomfort, air blowing in eyes, condensation in mask/hose, nasal congestion, dry mouth, nose, throat, epistaxis, other Observed to snore while using device: No Current pressure setting perceived as: comfortable On therapy, patient: reports: sleeping better, awakening more refreshed, being more awake and alert during the day, more rested overall. denies: drowsiness while driving Initial [place] Sleepiness Scale score: 7 (in 2018 (11 in 2007) Current [place] Sleepiness Scale score: 6 Allergies and Home Medications Home medication list reviewed: Yes (no changes) Review of Systems Review of systems same as previous: Yes (no changes) Physical Exam Heart Rate: 61 O2 Saturation: 98 Height: 5 ft 5 in Weight: 217 lb Body Mass Index: 36.1 BMI Classification: Obese Impression and Plan 1. Obstructive Sleep Apnea-Hypopnea Syndrome, mild, with excellent treatment compliance and good apnea control. On CPAP therapy, the patient has better sleep quality and is more rested overall. She has significant improvement of her sleep apnea with treatment and is satisfied with her CPAP therapy. We will make no adjustments today and have her follow up next year. Patient's apnea severity and rationale for treatment to reduce apnea, improve sleep quality and reduce cardiovascular and cerebrovascular events was reviewed. * Continue CPAP pressure at 10 cmH2O * Notify me if snoring with mask or feeling that the pressure is too much or too little * Attempt to lose weight * Call this office if any problems using CPAP * Return for follow up in 1 year, or sooner if concerns arise Counseling Topics: Spare mask, Weight loss health impact Time Spent with Patient (minutes): 11
== END 2020-07-26 14:03 | disposition home or self-care (01) ==
LOC: SC 14:02
PROVIDERS: ATTEND Nurse Practitioner Family
DX: G47.33 Obstructive sleep apnea (adult) (pediatric) (principal); E66.9 Obesity, unspecified; Z68.36 Body mass index [BMI] 36.0-36.9, adult
CPT/HCPCS: 99212; G0463

== ENCOUNTER 2021-01-16 09:36 | Outpatient (CLI) | payer MEDICARE, OTHER | END 2021-01-16 09:37 | disposition home or self-care (01) | LOC: RT 09:36 | PROVIDERS: ATTEND Internal Medicine Cardiovascular Disease | DX: I48.0 Paroxysmal atrial fibrillation (principal) | CPT/HCPCS: 93005 ==

== ENCOUNTER 2021-03-29 08:00 | Outpatient (CLI) | payer MEDICARE, OTHER ==
[2021-03-29 18:07] LABS: BILIRUBIN,URINE NEGATIVE (NEGATIVE); GLUCOSE, URINE (UA) NEGATIVE (NEGATIVE); KETONES,URINE (UA) NEGATIVE (NEGATIVE); LEUKOCYTE ESTERASE, URINE MODERATE (NEGATIVE); NITRITE,URINE POSITIVE (NEGATIVE); OCCULT BLOOD,URINE TRACE-INTA (NEGATIVE); PROTEIN,URINE NEGATIVE (NEGATIVE); UROBILINOGEN,URINE 1 (NORMAL) E.U./dL (NORMAL)
[2021-03-29 18:22] LABS: BACTERIA,URINE Many /HPF (None Seen); CLARITY,URINE CLEAR (CLEAR); SQUAMOUS EPITHELIAL CELL,UR FEW Squamous (<= Few); WBC CLUMPS,URINE PRESENT; WBC,URINE >25 /HPF (0-5)
== END 2021-03-29 23:59 | disposition home or self-care (01) ==
LOC: LAB.S 08:00
PROVIDERS: ATTEND Physician Assistant Medical
DX: R30.0 Dysuria (principal)
CPT/HCPCS: 81001; 87086; 87181

== ENCOUNTER 2021-04-16 08:00 | Outpatient (CLI) | payer MEDICARE, OTHER | END 2021-04-16 23:59 | disposition home or self-care (01) | LOC: LAB.S 08:00 | PROVIDERS: ATTEND Physician Assistant | DX: R32 Unspecified urinary incontinence (principal) | CPT/HCPCS: 87086 ==

== ENCOUNTER 2021-05-13 06:08 | Emergency (ER) | payer MEDICARE, OTHER ==
[2021-05-13] MEDS ORDERED: SODIUM CHLORIDE 0.9% 1,000 ML IV STA (06:22)
[2021-05-13 06:37] LABS: BASOPHILS # (AUTO) 0.1 10^3/uL (0.0-0.1); BASOPHILS % (AUTO) 1.2 %; EOSINOPHILS # (AUTO) 0.1 10^3/uL (0.0-0.7); EOSINOPHILS % (AUTO) 1.5 %; HCT - HEMATOCRIT 41.3 % (37.0-47.0); HGB - HEMOGLOBIN 14.1 g/dL (12.0-16.0); LYMPHOCYTES # (AUTO) 1.8 10^3/uL (1.5-3.5); LYMPHOCYTES % (AUTO) 30.5 %; MEAN CORPUSCULAR HEMOGLOBIN 30.9 pg (27.0-31.0); MEAN CORPUSCULAR HGB CONC 34.1 g/dL (32.0-36.0); MEAN CORPUSCULAR VOLUME 90.4 fL (81.0-99.0); MEAN PLATELET VOLUME 10.2 fL (7.9-10.8); MONOCYTES # (AUTO) 0.5 10^3/uL (0.0-1.0); MONOCYTES % (AUTO) 8.4 %; NEUTROPHILS # (AUTO) 3.4 10^3/uL (1.5-6.6); NEUTROPHILS % (AUTO) 58.1 %; PLT - PLATELET COUNT 217 10^3/uL (130-450); RED BLOOD COUNT 4.57 10^6/uL (4.20-5.40); RED CELL DISTRIBUTION WIDTH 11.9 % (12.0-15.0); WHITE BLOOD COUNT 5.8 x10^3/uL (4.8-10.8)
[2021-05-13 06:50] LABS: ALBUMIN 3.8 g/dL (3.2-5.5); ALBUMIN/GLOBULIN RATIO 1.4 (1.0-2.2); BILIRUBIN,TOTAL 0.5 mg/dL (0.2-1.0); CALCIUM 8.5 mg/dL (8.5-10.3); CREATININE 0.6 mg/dL (0.4-1.0); POTASSIUM 3.6 mmol/L (3.5-5.0); TOTAL PROTEIN 6.6 g/dL (6.7-8.2)
[2021-05-13] MEDS ORDERED: FLECAINIDE 50 MG TABLET PO STA (06:57)
--- NOTE | 2021-05-13 07:00 | ED Physician Documentation ---
History of Present Illness - Stated complaint Stated Complaint: HIGH HR, CHEST PRESSURE - Chief complaint Chief Complaint: Cardiac - History obtained from History obtained from: Patient - Additonal information Additional information: Comes emergency department with chief complaint of "I am in A. fib again". Patient states that she has a history of paroxysmal A. fib and the last time that she was in atrial fibrillation was about 1 year ago. She states that she has not had any chest pain, but just noticed a fluttering feeling in her chest which was not there when she went to bed last night. Patient states she has always been able to feel very distinctively when she goes into atrial fibrillation. Patient states she gets a little lightheaded if she walks fast, but has no shortness of breath or actual chest pain. The patient states she has been under some stress lately and that this may be the reason she went into A. fib. Patient states she did take her medication for her heart this morning, which she states is verapamil she also is on Eliquis which she has also taken this morning. The patient denies any recent illness. No history of coronary artery disease. No other complaints at this time. She is followed by cardiology. Review of Systems Ten Systems: 10 systems reviewed and negative Constitutional: reports: Reviewed and negative Eyes: reports: Reviewed and negative Ears: reports: Reviewed and negative Nose: reports: Reviewed and negative Throat: reports: Reviewed and negative Cardiac: reports: Palpitations Respiratory: reports: Reviewed and negative GI: reports: Reviewed and negative : reports: Reviewed and negative Skin: reports: Reviewed and negative Musculoskeletal: reports: Reviewed and negative Neurologic: reports: Reviewed and negative Psychiatric: reports: Reviewed and negative Endocrine: reports: Reviewed and negative Immunocompromised: reports: Reviewed and negative PD PAST MEDICAL HISTORY - Past Medical History Past Medical History: Yes Cardiovascular: Hypertension, High cholesterol, Atrial fibrillation Respiratory: Sleep apnea, CPAP use Neuro: None Endocrine/Autoimmune: HyPOthyroidism GI: Colon polyps, Diverticulitis, Other 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 : Incontinence, Chronic bladder infection HEENT: Chronic vision loss, Chronic sinusitis Psych: Depression, Anxiety Musculoskeletal: Osteoarthritis Derm: Other - Past Surgical History Past Surgical History: Yes General: Cholecystectomy, Colonoscopy Ortho: Hip replacement, Arthroscopic surgery /CERTIFIED MAINTENANCE WELDER: Hysterectomy HEENT: Tonsil/Adenoidectomy Derm: Skin cancer surgery - Present Medications Home Medications: Ambulatory Orders Medication Instructions Recorded Confirmed Levothyroxine Sodium [Levoxyl] 112 mcg PO DAILY 02/20/13 06/06/20 Verapamil ER [Calan SA] 240 mg PO DAILY 02/20/13 06/06/20 Cholecalciferol (Vitamin D3) 5,000 unit PO DAILY 02/21/13 06/06/20 [Vitamin D] Oxybutynin [Ditropan] 5 mg PO BID 02/21/13 06/06/20 [place] Oil/Clio-3 Fatty Acids 1 cap PO DAILY 10/10/13 06/06/20 [Fish Oil 500 mg Softgel] Apixaban [Eliquis] 5 mg PO BID 03/29/19 06/06/20 Atorvastatin Calcium 10 mg PO DAILY 03/29/19 05/30/20 Escitalopram Oxalate [Lexapro] 5 mg PO DAILY 03/29/19 06/06/20 Propafenone HCl 150 mg PO TID 03/29/19 06/06/20 Ascorbic Acid [Vitamin C] 1,000 mg PO DAILY 05/30/20 06/06/20 Cinnamon 1,200 mg PO DAILY 05/30/20 D-Mannose [Mannxtra] 500 gm PO BID 05/30/20 06/06/20 Fluticasone [Flonase] 1 sprays SADA BID 05/30/20 06/06/20 L. Acidophilus,Casei,Rhamnosus 1 each PO DAILY 05/30/20 05/30/20 [Bio-K Plus Dr 50 Billion Cap] Multivit-Min/Vit C/Herb No.124 1 each PO DAILY 05/30/20 06/06/20 [Airborne Chewable Tablet] Ondansetron Odt [Zofran Odt] 4 mg TL Q6H PRN 05/30/20 05/30/20 Phenazopyridine HCl [Pyridium] 200 mg PO PRN PRN 05/30/20 05/30/20 Tylenol Pm 1 tab PO QPM 05/30/20 estradioL vaginal [Estrace vaginal] 2 gm VG ONCE 05/30/20 05/30/20 - Allergies Allergies/Adverse Reactions: Allergies Allergy/AdvReac Type Severity Reaction Status Date / Time adhesive Allergy Rash Verified 05/13/21 06:21 sulfamethoxazole Allergy Itching Verified 05/13/21 06:21 [From Bactrim] trimethoprim [From Bactrim] Allergy Itching Verified 05/13/21 06:21 - Social History Does the pt smoke?: No Smoking Status: Never smoker Does the pt drink ETOH?: Yes Does the pt have substance abuse?: No - Immunizations Immunizations are current?: No - POLST Patient has POLST: No PD ED PE NORMAL - Vitals Vital signs reviewed: Yes - General General: Alert and oriented X 3, No acute distress, Well developed/nourished - HEENT HEENT: Atraumatic, PERRL, EOMI, Moist mucous membranes - Cardiac Cardiac: No murmur, Strong equal pulses, Other (Irregular rate and rhythm. 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, Normal speech - Psych Psych: Normal mood, Normal affect Results - Vitals Vitals: Vital Signs - 24 hr 05/13/21 05/13/21 05/13/21 06:18 06:28 06:37 Temperature 36.6 C Heart Rate 110 H 88 Respiratory 16 12 16 Rate Blood Pressure 149/91 H 130/92 H O2 Saturation 98 97 98 05/13/21 05/13/21 06:44 07:23 Temperature 35.7 C L Heart Rate 102 H 57 L Respiratory 17 14 Rate Blood Pressure 123/74 123/85 H O2 Saturation 98 98 Oxygen O2 Source Room air - EKG (time done) 0617 Rate: Rate (enter#) (105) Rhythm: Atrial fibrillation [place]: LAD (Borderline) QRS: Normal Ischemia: Normal ST segments, Non specific changes Compare to prior EKG: Old EKG unavailable Computer interpretation: Agree with computer 0716 Rate: Rate (enter#) (57) Rhythm: NSR [place]: LAD (Borderline) Intervals: Normal [place] QRS: Normal Ischemia: Normal ST segments Compare to prior EKG: Changed from prior EKG (Resolution of atrial fibrillation in the interim.) Computer interpretation: Agree with computer - Labs Labs: Laboratory Tests 05/13/21 05/13/21 05/13/21 06:20 06:20 06:20 WBC 5.8 RBC 4.57 Hgb 14.1 Hct 41.3 MCV 90.4 MCH 30.9 MCHC 34.1 RDW 11.9 L Plt Count 217 MPV 10.2 Neut # (Auto) 3.4 Lymph # (Auto) 1.8 Lake # (Auto) 0.5 Eos # (Auto) 0.1 Baso # (Auto) 0.1 Absolute Nucleated RBC 0.00 Nucleated RBC % 0.0 Sodium 138 Potassium 3.6 Chloride 105 Carbon Dioxide 22 Anion Gap 11.0 BUN 17 Creatinine 0.6 Estimated GFR (MDRD) 99 Glucose 98 Calcium 8.5 Total Bilirubin 0.5 AST 17 ALT 15 Alkaline Phosphatase 45 Total Protein 6.6 L Albumin 3.8 Globulin 2.8 Albumin/Globulin Ratio 1.4 Lipase 32 TSH 5.12 PD MEDICAL DECISION MAKING - ED course Complexity details: reviewed results, re-evaluated patient, considered differential, d/w patient ED course: The patient was very stable and was well-appearing. She was started on IV fluids. Laboratory studies, including TSH, were obtained, Which were unremarkable. The patient converted to normal sinus rhythm on her own before any further treatment was administered urgency department. We have discussed follow- up and the usual indications for return. Patient is stable for discharge. Departure - Departure Disposition: 01 Home, Self Care Clinical Impression: Paroxysmal atrial fibrillation Condition: Stable Instructions: Atrial Fibrillation Dc Comments: Your labs look great. You have converted back to normal sinus rhythm on your own before administration of any medication in the emergency department. Please continue your usual medications at home.
[2021-05-13 07:24] VITALS: BP 123/85
== END 2021-05-13 08:03 | disposition home or self-care (01) ==
LOC: ED 06:08
DX: I48.0 Paroxysmal atrial fibrillation (principal); Z79.01 Long term (current) use of anticoagulants; I10 Essential (primary) hypertension; G47.30 Sleep apnea, unspecified; E03.9 Hypothyroidism, unspecified; E78.00 Pure hypercholesterolemia, unspecified
CPT/HCPCS: 36415; 80053; 83690; 84443; 85025; 93005; 96360; 99283; 99284; A9270

== ENCOUNTER 2021-05-22 12:53 | Outpatient (CLI) | payer MEDICARE, OTHER | END 2021-05-22 12:54 | disposition critical access hospital (66) | LOC: EMS 12:53 | DX: S09.90XA Unspecified injury of head, initial encounter (principal); R51.9 Headache, unspecified; M25.562 Pain in left knee; W01.0XXA Fall on same level from slipping, tripping and stumbling without subsequent striking against object, initial encounter; Y93.01 Activity, walking, marching and hiking; Y92.89 Other specified places as the place of occurrence of the external cause | CPT/HCPCS: A0425; A0429 ==

== ENCOUNTER 2021-05-22 13:23 | Emergency (ER) | payer MEDICARE, OTHER ==
--- NOTE | 2021-05-22 13:33 | ED Physician Documentation ---
PD HPI Fall - Stated complaint Stated Complaint: FALL - History obtained from History obtained from: Patient - History of Present Illness Mechanism of injury: Tripped (States she was walking the [place] and [place] and tripped on a root falling forward striking her knee then her head.) Fall distance: Standing position Where injury occurred: Park Timing - onset: How many hours ago (2), Today, Other (Denies any preceding symptoms and states she was feeling well on her walk prior to the fall.) Injury(ies) location: Head (left forehead), Left Lower Extremity (anterior knee pain and swelling) Associated symptoms: No: LOC, AMS (felt lightheaded for few moments when first got up.), Weakness, Paresthesias, Nausea / vomiting Worsens with: Movement, Palpation Contributing factors: Anticoagulated. No: Intoxicated Similar symptoms before: Has not had sx before Recently seen: Clinic (went to [facility] and referred here by EMS for evaluation.) Review of Systems Constitutional: denies: Fever, Chills Nose: denies: Rhinorrhea / runny nose, Congestion Throat: denies: Sore throat Cardiac: denies: Chest pain / pressure Respiratory: denies: Cough GI: denies: Abdominal Pain, Nausea, Vomiting Skin: denies: Laceration (s) Musculoskeletal: reports: Joint swelling (left anterior knee) Neurologic: denies: Generalized weakness, Focal weakness, Numbness PD PAST MEDICAL HISTORY - Past Medical History Cardiovascular: Hypertension, High cholesterol, Atrial fibrillation Respiratory: Sleep apnea, CPAP use Neuro: None Endocrine/Autoimmune: HyPOthyroidism GI: Colon polyps, Diverticulitis, Other AUTOMOTIVE PARTS COORDINATOR: None : Incontinence, Chronic bladder infection HEENT: Chronic vision loss, Chronic sinusitis Psych: Depression, Anxiety Musculoskeletal: Osteoarthritis Derm: Other - Past Surgical History Past Surgical History: Yes General: Cholecystectomy, Colonoscopy Ortho: Hip replacement, Arthroscopic surgery /AUTOMOTIVE PARTS COORDINATOR: Hysterectomy HEENT: Tonsil/Adenoidectomy Derm: Skin cancer surgery - Present Medications Home Medications: Ambulatory Orders Medication Instructions Recorded Confirmed Levothyroxine Sodium [Levoxyl] 112 mcg PO DAILY 02/20/13 06/06/20 Verapamil ER [Calan SA] 240 mg PO DAILY 02/20/13 06/06/20 Cholecalciferol (Vitamin D3) 5,000 unit PO DAILY 02/21/13 06/06/20 [Vitamin D] Oxybutynin [Ditropan] 5 mg PO BID 02/21/13 06/06/20 [place] Oil/Herod-3 Fatty Acids 1 cap PO DAILY 10/10/13 06/06/20 [Fish Oil 500 mg Softgel] Apixaban [Eliquis] 5 mg PO BID 03/29/19 06/06/20 Atorvastatin Calcium 10 mg PO DAILY 03/29/19 05/30/20 Escitalopram Oxalate [Lexapro] 5 mg PO DAILY 03/29/19 06/06/20 Propafenone HCl 150 mg PO TID 03/29/19 06/06/20 Ascorbic Acid [Vitamin C] 1,000 mg PO DAILY 05/30/20 06/06/20 Cinnamon 1,200 mg PO DAILY 05/30/20 D-Mannose [Mannxtra] 500 gm PO BID 05/30/20 06/06/20 Fluticasone [Flonase] 1 sprays SADA BID 05/30/20 06/06/20 L. Acidophilus,Casei,Rhamnosus 1 each PO DAILY 05/30/20 05/30/20 [Bio-K Plus Dr 50 Billion Cap] Multivit-Min/Vit C/Herb No.124 1 each PO DAILY 05/30/20 06/06/20 [Airborne Chewable Tablet] Ondansetron Odt [Zofran Odt] 4 mg TL Q6H PRN 05/30/20 05/30/20 Phenazopyridine HCl [Pyridium] 200 mg PO PRN PRN 05/30/20 05/30/20 Tylenol Pm 1 tab PO QPM 05/30/20 estradioL vaginal [Estrace vaginal] 2 gm VG ONCE 05/30/20 05/30/20 HYDROcod/ACETAM 5/325 [[place] 5/325] 1 ea PO Q6H PRN #15 tablet 05/22/21 - Allergies Allergies/Adverse Reactions: Allergies Allergy/AdvReac Type Severity Reaction Status Date / Time adhesive Allergy Rash Verified 05/22/21 13:51 sulfamethoxazole Allergy Itching Verified 05/22/21 13:51 [From Bactrim] trimethoprim [From Bactrim] Allergy Itching Verified 05/22/21 13:51 - Social History Does the pt smoke?: No Smoking Status: Never smoker Does the pt drink ETOH?: Yes Does the pt have substance abuse?: No - Immunizations Immunizations are current?: No - POLST Patient has POLST: No PD ED PE NORMAL - Vitals Vital signs reviewed: Yes - General General: Alert and oriented X 3, No acute distress, Well developed/nourished - HEENT HEENT: PERRL, EOMI, Other (Left forehead with localized swelling purple coloration tenderness with mild superficial abrasion.) - Neck Neck: Supple, no meningeal sign, No bony TTP, No adenopathy, C-Spine cleared by NEXUS criteria - Cardiac Cardiac: RRR, No murmur - Respiratory Respiratory: Clear bilaterally, Other (no chestwall tenderness) - Abdomen Abdomen: Soft, Non tender - Back Back: No spinal TTP - Derm Derm: Normal color, Warm and dry - Extremities Extremities: Other (Left anterior knee with significant swelling and effusion. She is able to lift it up straight and bend slightly but is limited due to discomfort. No gross deformity.) - Neuro Neuro: Alert and oriented X 3, lining cutter 2-12 intact, No motor deficit, No sensory deficit, Normal speech Eye Opening: Spontaneous Motor: Obeys Commands Verbal: Oriented GCS Score: 15 - Psych Psych: Normal mood Results - Vitals Vitals: Vital Signs - 24 hr 05/22/21 13:36 Temperature 36.6 C Heart Rate 68 Respiratory 18 Rate Blood Pressure 156/77 H O2 Saturation 99 Oxygen O2 Source Room air - Labs Labs: Laboratory Tests 05/22/21 05/22/21 05/22/21 13:39 13:39 13:39 WBC 7.5 RBC 4.70 Hgb 14.3 Hct 42.9 MCV 91.3 MCH 30.4 MCHC 33.3 RDW 11.9 L Plt Count 250 MPV 9.9 Neut # (Auto) 4.8 Lymph # (Auto) 2.0 [place] # (Auto) 0.5 Eos # (Auto) 0.1 Baso # (Auto) 0.1 Absolute Nucleated RBC 0.00 Nucleated RBC % 0.0 PT 15.2 H INR 1.4 H APTT 34.9 H Sodium 138 Potassium 4.1 Chloride 101 Carbon Dioxide 26 Anion Gap 11.0 BUN 21 H Creatinine 0.7 Estimated GFR (MDRD) 83 L Glucose 105 H Calcium 9.2 Total Bilirubin 0.4 AST 19 ALT 19 Alkaline Phosphatase 52 Total Protein 7.7 Albumin 4.5 Globulin 3.2 Albumin/Globulin Ratio 1.4 Lipase 35 - Rads (name of study) left knee Radiology: Prelim report reviewed, See rad report head CT Radiology: Prelim report reviewed, See rad report PD MEDICAL DECISION MAKING - ED course Complexity details: re-evaluated patient (Patient still remains awake alert conversant with a GCS of 15 on repeat exam.), considered differential, d/w patient Departure - Departure Disposition: 01 Home, Self Care Clinical Impression: Anticoagulant long-term use Fall from slip, trip, or stumble Qualifiers: Encounter type: initial encounter Qualified Code(s): W01.0XXA - Fall on same level from slipping, tripping and stumbling without subsequent striking against object, initial encounter Contusion of knee, left Qualifiers: Encounter type: initial encounter Qualified Code(s): S80.02XA - Contusion of left knee, initial encounter Forehead contusion Qualifiers: Encounter type: initial encounter Qualified Code(s): S00.83XA - Contusion of other part of head, initial encounter Condition: Stable Record reviewed to determine appropriate education?: Yes Instructions: ED Effusion Knee, ED Contusion Scalp Follow-Up: Miri Bauer ARNP [Primary Care Provider] - Prescriptions: HYDROcod/ACETAM 5/325 [[place] 5/325] 1 ea PO Q6H PRN #15 tablet PRN Reason: Pain Comments: CAT scan of the head does not show any bleeding in the cranial compartment. Your knee x-ray shows old arthritic changes in calcified tendons but no acute fracture. Ice often to the knee to help with swelling. Gentle range of motion. Renan wrap gently on the area to reduce swelling as well. If the fluid in the knee has not deflated well in the next week or 2, you could follow-up with your primary care or potentially orthopedics to potentially have the area drained of the hematoma. Usually it will resolve itself well enough that I will need that. Tylenol 500 mg 4 times a day for pain regularly for the next several days to week. Use hydrocodone every 6 hours if needed for worse pain. Recheck if worsening pains in particular headache, confusion, blurred vision vomiting or other concerns. Continue usual medications. I transmitted your prescription to [facility] in [place]. I am prescribing a short course of narcotic pain medication for you. These are potentially dangerous and addictive medications that should be used carefully. These medications may constipate you. Take an [id number] stool softener such as docusate twice daily with plenty of water while taking these medications. If you go 24 hours without a bowel movement, take [id number] MiraLAX, per package instructions. Do not drink or drive while taking these medications. If you received narcotic or sedating medications while in the emergency department do not drive for 24 hours. Store this medication in a safe, secure place and out of reach of children. It is a violation of federal law to give or sell this medication to another person or to use in a manner other than prescribed. The ED will not refill narcotic prescriptions, including prescriptions lost or stolen. You can dispose of unwanted medications at the [facility] office or at several pharmacies such as [facility].
[2021-05-22 13:45] LABS: BASOPHILS # (AUTO) 0.1 10^3/uL (0.0-0.1); BASOPHILS % (AUTO) 0.8 %; EOSINOPHILS # (AUTO) 0.1 10^3/uL (0.0-0.7); EOSINOPHILS % (AUTO) 1.2 %; HCT - HEMATOCRIT 42.9 % (37.0-47.0); HGB - HEMOGLOBIN 14.3 g/dL (12.0-16.0); LYMPHOCYTES % (AUTO) 27.1 %; MEAN CORPUSCULAR HEMOGLOBIN 30.4 pg (27.0-31.0); MEAN CORPUSCULAR HGB CONC 33.3 g/dL (32.0-36.0); MEAN CORPUSCULAR VOLUME 91.3 fL (81.0-99.0); MEAN PLATELET VOLUME 9.9 fL (7.9-10.8); MONOCYTES # (AUTO) 0.5 10^3/uL (0.0-1.0); MONOCYTES % (AUTO) 6.5 %; NEUTROPHILS # (AUTO) 4.8 10^3/uL (1.5-6.6); NEUTROPHILS % (AUTO) 64.1 %; PLT - PLATELET COUNT 250 10^3/uL (130-450); RED CELL DISTRIBUTION WIDTH 11.9 % (12.0-15.0); WHITE BLOOD COUNT 7.5 x10^3/uL (4.8-10.8)
[2021-05-22 13:52] LABS: INR 1.4 (0.8-1.2); PT - PROTHROMBIN TIME 15.2 secs (9.9-12.6)
[2021-05-22 13:57] LABS: ALBUMIN 4.5 g/dL (3.2-5.5); ALBUMIN/GLOBULIN RATIO 1.4 (1.0-2.2); BILIRUBIN,TOTAL 0.4 mg/dL (0.2-1.0); CALCIUM 9.2 mg/dL (8.5-10.3); CREATININE 0.7 mg/dL (0.4-1.0); POTASSIUM 4.1 mmol/L (3.5-5.0); TOTAL PROTEIN 7.7 g/dL (6.7-8.2)
--- NOTE | 2021-05-22 13:58 | XRAY Report ---
PROCEDURE: Knee 3 View LT INDICATIONS: fall, knee pain/swelling TECHNIQUE: 3 views of the left knee(s) were acquired. COMPARISON: None. FINDINGS: Bones: No fractures or dislocations. Moderate tricompartmental osteoarthritis is seen more prominent in medial femoral tibial compartment. No suspicious bony lesions. Soft tissues: There is significant anterior left knee soft tissue swelling. No joint effusion. Well- corticated calcifications are noted within left knee soft tissue along anterior aspect of upper avila la likely represent calcifications from remote injury. No full-thickness quadriceps tendon or patella r tendon rupture. IMPRESSION: 1. No acute left knee fracture or dislocation. Moderate tricompartmental osteoarthritis. 2. Marked anterior left knee soft tissue swelling. No full-thickness quadriceps tendon or patellar te ndon rupture. Well-corticated calcifications anterior to superior portion of patella suggestive of so ft tissue changes related to old injury. Reviewed by: Ramone Malhotra MD on 05/22/2021 1:56 PM PST Approved by: Ramone Malhotra MD on 05/22/2021 1:56 PM PST Station ID: [id number]
[2021-05-22 13:59] LABS: PARTIAL THROMBOPLASTIN TIME 34.9 secs (24.9-33.3)
--- NOTE | 2021-05-22 14:07 | CT Report ---
PROCEDURE: HEAD WO INDICATIONS: head contusion, fall; on Eliquis TECHNIQUE: Noncontrast 4.5 mm thick angled axial sections acquired from the foramen magnum to the vertex. For r adiation dose reduction, the following was used: automated exposure control, adjustment of mA and/or kV according to patient size. COMPARISON: 11/23/2019 FINDINGS: Image quality: Excellent. CSF spaces: Basal cisterns are patent. No extra-axial fluid collections. Ventricles are normal in size and shape. Brain: No midline shift. No intracranial masses or hemorrhage. Alfred-white matter interface is norm al. Age-appropriate brain parenchymal volume loss and chronic small vessel ischemic change can be se en. Skull and face: Calvarium and visualized facial bones are intact, without suspicious lesions. Hyper ostosis there is a mild left forehead scalp hematoma seen, without an associated calvarial fracture. Sinuses: Visualized sinuses and mastoids are clear. IMPRESSION: No intracranial hemorrhage is seen. Left forehead scalp hematoma, without an associated fracture identified. Reviewed by: Joe Jack MD on 05/22/2021 1:06 PM [place] Approved by: Joe Jack MD on 05/22/2021 1:06 PM [facility] Station ID: [id number]
[2021-05-22] MEDS: HYDROmorphone 0.5 MG/0.5 ML SYRINGE IVP STA (14:50)
[2021-05-22] MEDS: ACETAMINOPHEN 325 MG TABLET PO STA (14:50)
[2021-05-22 15:21] VITALS: BP 118/73
== END 2021-05-22 15:21 | disposition home or self-care (01) ==
LOC: EDUNIT# → ED 13:23
DX: S80.02XA Contusion of left knee, initial encounter (principal); S00.83XA Contusion of other part of head, initial encounter; W01.198A Fall on same level from slipping, tripping and stumbling with subsequent striking against other object, initial encounter; Y93.01 Activity, walking, marching and hiking; Y92.830 Public park as the place of occurrence of the external cause; I48.91 Unspecified atrial fibrillation; Z79.01 Long term (current) use of anticoagulants; I10 Essential (primary) hypertension
CPT/HCPCS: 36415; 70450; 73562; 80053; 83690; 85025; 85610; 85730; 96374; 99284; A9270; J1170

== ENCOUNTER 2021-08-10 13:14 | Outpatient (CLI) | payer MEDICARE, OTHER ==
--- NOTE | 2021-08-13 16:44 | Mammography Report ---
BILATERAL DIGITAL SCREENING MAMMOGRAM 3D/2D: 08/10/2021 CLINICAL: Routine screening. Family history of breast cancer. Comparison is made to exams dated: 06/29/2019 mammogram, 08/26/2017 mammogram, and 05/15/2014 mammogram - [facility]. The tissue of both breasts is predominantly fatty. No significant masses, calcifications, or other findings are seen in either breast. There has been no significant interval change. IMPRESSION: NEGATIVE There is no mammographic evidence of malignancy. A 1 year screening mammogram is recommended. This exam was interpreted at Station ID: [id number]. NOTE: For mammograms, a report in lay terms will be sent to the patient. Approximately 15% of breast malignancies will not be visualized mammographically. In the management of a palpable breast mass, a negative mammogram must not discourage biopsy of a clinically suspicious lesion. Electronically Signed By: Eusebio Montero M.D. aty/penrad:08/13/2021 08:48:05 ACR BI-RADS Category 1: Negative 3341F PARENCHYMAL PATTERN: (F) - The breast(s) demonstrate(s) diffuse fatty replacement. BI-RADS CATEGORY: (1) - 1 RECOMMENDATION: (ANNUAL) - Recommend routine annual screening mammography. [id number] 1 year screening LATERALITY: (B)
== END 2021-08-10 13:15 | disposition home or self-care (01) ==
LOC: DI.S 13:14
PROVIDERS: ATTEND Registered Nurse
DX: Z12.31 Encounter for screening mammogram for malignant neoplasm of breast (principal); Z80.3 Family history of malignant neoplasm of breast

== ENCOUNTER 2021-10-28 08:09 | Day surgery (SDC) | payer MEDICARE, OTHER ==
[2021-10-28] MEDS ORDERED: LACTATED RINGERS 1,000 ML IV ONE ×2 (08:19→10:13)
[2021-10-28] MEDS ORDERED: LIDOCAINE-MPF 2% 5 ML VIAL ONE (08:42)
[2021-10-28] MEDS ORDERED: PROPOFOL 500 MG/50 ML 500 MG/50 ML VIAL ONE (08:42)
--- NOTE | 2021-10-28 08:48 | ANESTHESIA ---
Pre-Anesthesia VS, & Labs - Diagnosis history of colon cancer - Procedure colonoscopy Vital Signs: Temp Pulse Resp BP Pulse Ox 36.0 C L 57 L 16 134/78 H 97 10/28/21 08:25 10/28/21 08:25 10/28/21 08:25 10/28/21 08:25 10/28/21 08:25 Height: 5 ft 5 in Weight (kg): 100.6 kg Body Mass Index: 36.8 BMI Classification: Obese - NPO >8 hours - Is Patient ?: No (hysterectomy) Home Medications and Allergies Home Medications: Ambulatory Orders Escitalopram [Lexapro] 1 tab PO HS 10/28/21 Levothyroxine Sodium [Levoxyl] 112 mcg PO DAILY 02/20/13 Verapamil ER [Calan SA] 240 mg PO DAILY 02/20/13 Cholecalciferol (Vitamin D3) [Vitamin D] 5,000 unit PO DAILY 02/21/13 Oxybutynin [Ditropan] 5 mg PO BID 02/21/13 [place] Oil/[place]-3 Fatty Acids [Fish Oil 500 mg Softgel] 1 cap PO DAILY 10/10/13 Apixaban [Eliquis] 5 mg PO BID 03/29/19 Atorvastatin Calcium 10 mg PO DAILY 03/29/19 Escitalopram Oxalate [Lexapro] 5 mg PO DAILY 03/29/19 Propafenone HCl 150 mg PO BID 03/29/19 Ascorbic Acid [Vitamin C] 1,000 mg PO DAILY 05/30/20 Cinnamon 1,200 mg PO DAILY 05/30/20 D-Mannose [Mannxtra] 500 gm PO BID 05/30/20 L. Acidophilus,Casei,Rhamnosus [Bio-K Plus Dr 50 Billion Cap] 1 each PO DAILY 05/30/20 Tylenol Pm 1 tab PO QPM 05/30/20 estradioL vaginal [Estrace vaginal] 2 gm VG ONCE 05/30/20 Escitalopram [Lexapro] 1 tab PO HS 10/28/21 Allergies/Adverse Reactions: Allergies Allergy/AdvReac Type Severity Reaction Status Date / Time adhesive Allergy Rash Verified 10/28/21 08:33 sulfamethoxazole Allergy Itching Verified 10/28/21 08:33 [From Bactrim] trimethoprim [From Bactrim] Allergy Itching Verified 10/28/21 08:33 Anes History & Medical History - Anesthetic History Anesthesia Complications: reports: No previous complications Family history of Anesthesia Complications: Denies Family history of Malignant Hyperthermia: Denies - Medical History Cardiovascular: reports: Hypertension, High cholesterol, Atrial fibrillation Pulmonary: reports: Sleep apnea, CPAP use Gastrointestinal: reports: GERD, Colon polyps, Diverticulitis, Other (hx of cholecystecomy) Urinary: reports: Incontinence, Chronic bladder infection, Frequency Neuro: reports: None Musculoskeletal: reports: Osteoarthritis Endocrine/Autoimmune: reports: HyPOthyroidism Blood Disorders: reports: None Skin: reports: Other Smoking Status: Never smoker Psychosocial: reports: Depression History of Cancer?: Yes (hx of colon cancer) - Surgical History General: reports: Cholecystectomy, Colonoscopy Eyes Ears Nose Throat (EENT): reports: Tonsil/Adenoidectomy Gynecologic: reports: Hysterectomy Orthopedic: reports: Hip replacement, Arthroscopic surgery Dermatologic: reports: Skin cancer surgery Exam General: Alert, Oriented x3, Cooperative, No acute distress Dental: WNL Mouth Openin Fingerbreadth Neck Mobility: Normal Mallampati classification: II Thyromental Distance: 4-6 cm Respiratory: Lungs clear, Normal breath sounds, No respiratory distress, No accessory muscle use Cardiovascular: Regular rate, Normal S1, Normal S2, No murmurs Abdomen: Normal bowel sounds, Soft, No tenderness, No hepatospenomegaly, No masses Extremities: No clubbing, No cyanosis, No edema, Normal pulses, No tenderness/swelling Neurological: Normal gait, Normal speech, Strength at 5/5 X4 ext, Normal tone, Sensation intact, Cranial nerves 3-12 NL, Reflexes 2+ Mental/Cognitive Status: Alert/Oriented X3, Normal for patient Cognitive Status: Within normal limits Plan Anesthesia Type: General Consent for Procedure(s) Verified and Reviewed: Yes Code Status: Attempt Resuscitation ASA classification: 2-Mild systemic disease Is this case an emergency?: No
[2021-10-28] MEDS ORDERED: MIDAZOLAM 2 MG/2 ML VIAL ONE (09:18)
[2021-10-28] MEDS ORDERED: PROPOFOL 200 MG/20 ML VIAL IVP ONE (10:10)
--- NOTE | 2021-10-28 10:47 | ANESTHESIA POST OP EVALUATION ---
Anesthesia Post Eval - Post Anesthesia Eval Vitals: Last Vital Signs Temp 36.8 C 10/28/21 10:30 Pulse 55 L 10/28/21 10:30 Resp 18 10/28/21 10:30 BP 150/75 H 10/28/21 10:30 Pulse Ox 95 10/28/21 10:30 CV Function Including HR & BP: Stable Pain Control: Satisfactory Nausea & Vomiting: Negative Mental Status: Baseline Respiratory Status: Airway Patent Hydration Status: Satisfactory Anesthesia Complications: None
[2021-10-28 11:11] VITALS: BP 133/88
== END 2021-10-28 08:10 | disposition home or self-care (01) ==
LOC: SDS 08:09
PROVIDERS: ATTEND Surgery
PROC: 0DBK8ZX Excision of Ascending Colon, Via Natural or Artificial Opening Endoscopic, Diagnostic (ICD-10-PCS; principal; 2021-10-28 09:15)
DX: Z85.038 Personal history of other malignant neoplasm of large intestine (principal); Z86.010 Personal history of colon polyps; D12.2 Benign neoplasm of ascending colon; K64.8 Other hemorrhoids; I10 Essential (primary) hypertension; E66.9 Obesity, unspecified; G47.30 Sleep apnea, unspecified; Z68.39 Body mass index [BMI] 39.0-39.9, adult
CPT/HCPCS: 45380; J7120

== ENCOUNTER 2022-03-14 08:00 | Outpatient (CLI) | payer MEDICARE, OTHER ==
--- NOTE | 2022-03-14 11:48 | XRAY Report ---
PROCEDURE: Wrist 3 View BILAT INDICATIONS: BILATERAL OSTEOARTHRITIS HANDS AND WRISTS TECHNIQUE: 3 views of the wrist were acquired. COMPARISON: None FINDINGS: Bones: No fractures or dislocations. No suspicious bony lesions. Distal radial ulnar joint space n arrowing with marginal osteophyte noted Soft tissues: No suspicious soft tissue calcifications. IMPRESSION: Distal radial ulnar joint osteoarthritis Reviewed by: Jorden Jacobs MD on 03/14/2022 10:46 AM [facility] Approved by: Jorden Jacobs MD on 03/14/2022 10:46 AM [facility] Station ID: [id number]
--- NOTE | 2022-03-14 14:04 | XRAY Report ---
PROCEDURE: Hand 3 View BILAT INDICATIONS: OSTEOARTHRITIS BILATERAL HANDS/WRISTS TECHNIQUE: 3 views of each hand were obtained COMPARISON: None FINDINGS: Bones: No fractures or dislocations. No suspicious bony lesions. Distal interphalangeal joint spac e narrowing and small marginal osteophytes noted. PIP degenerative changes noted involving the second through fourth digits on the right. The first interphalangeal joint changes noted as well Soft tissues: No suspicious soft tissue calcifications. IMPRESSION: Bilateral interphalangeal osteoarthritis Reviewed by: Jorden Jacobs MD on 03/14/2022 1:02 PM [facility] Approved by: Jorden Jacobs MD on 03/14/2022 1:02 PM [facility] Station ID: [id number]
== END 2022-03-14 23:59 | disposition home or self-care (01) ==
LOC: DI.S 08:00
PROVIDERS: ATTEND Registered Nurse
DX: M19.042 Primary osteoarthritis, left hand (principal); M19.041 Primary osteoarthritis, right hand; M19.039 Primary osteoarthritis, unspecified wrist

== ENCOUNTER 2022-06-02 02:47 | Outpatient (CLI) | payer MEDICARE, OTHER | END 2022-06-02 02:48 | disposition EMS.NT | LOC: EMS 02:47 | DX: R00.2 Palpitations (principal) ==

== ENCOUNTER 2022-06-02 07:28 | Day surgery (SDC) | payer MEDICARE, OTHER ==
[2022-06-02] MEDS ORDERED: LACTATED RINGERS 1,000 ML IV ONE (07:31)
--- NOTE | 2022-06-02 08:20 | ANESTHESIA ---
Pre-Anesthesia VS, & Labs - Diagnosis hx of colon CA - Procedure colonoscopy Vital Signs: Temp Pulse Resp BP Pulse Ox O2 Flow Rate 36.1 C L 66 16 118/86 H 95 06/02/22 07:37 06/02/22 07:37 06/02/22 07:37 06/02/22 07:37 06/02/22 07:37 Height: 5 ft 5 in Weight (kg): 102 kg Body Mass Index: 37.4 BMI Classification: Obese - NPO >8 hours - Is Patient ?: No Home Medications and Allergies Levothyroxine Sodium [Levoxyl] 112 mcg PO DAILY 02/20/13 Verapamil ER [Calan SA] 240 mg PO DAILY 02/20/13 Cholecalciferol (Vitamin D3) [Vitamin D] 5,000 unit PO DAILY 02/21/13 Oxybutynin [Ditropan] 5 mg PO BID 02/21/13 Apixaban [Eliquis] 5 mg PO BID 03/29/19 Atorvastatin Calcium 10 mg PO DAILY 03/29/19 Propafenone HCl 150 mg PO BID 03/29/19 Ascorbic Acid [Vitamin C] 1,000 mg PO DAILY 05/30/20 Cinnamon 1,200 mg PO DAILY 05/30/20 estradioL vaginal [Estrace vaginal] 2 gm VG ONCE 05/30/20 Escitalopram [Lexapro] 5 tab PO HS 10/28/21 Allergies/Adverse Reactions: Allergies Allergy/AdvReac Type Severity Reaction Status Date / Time adhesive Allergy Rash Verified 10/28/21 08:33 sulfamethoxazole Allergy Itching Verified 10/28/21 08:33 [From Bactrim] trimethoprim [From Bactrim] Allergy Itching Verified 10/28/21 08:33 Anes History & Medical History - Anesthetic History Anesthesia Complications: reports: No previous complications Family history of Anesthesia Complications: Denies Family history of Malignant Hyperthermia: Denies - Medical History Cardiovascular: reports: Hypertension, High cholesterol, Atrial fibrillation Pulmonary: reports: Sleep apnea, CPAP use Gastrointestinal: reports: GERD, Colon polyps, Diverticulitis, Other Urinary: reports: Incontinence, Chronic bladder infection, Frequency Neuro: reports: None Musculoskeletal: reports: Osteoarthritis Endocrine/Autoimmune: reports: HyPOthyroidism Blood Disorders: reports: None Skin: reports: Other Smoking Status: Never smoker - Surgical History General: reports: Cholecystectomy, Colonoscopy Eyes Ears Nose Throat (EENT): reports: Cataracts, Tonsil/Adenoidectomy Gynecologic: reports: Hysterectomy Orthopedic: reports: Hip replacement, Arthroscopic surgery Dermatologic: reports: Skin cancer surgery Exam General: Alert, Oriented x3, Cooperative Dental: WNL Mouth Openin Fingerbreadth Neck Mobility: Normal Mallampati classification: I Thyromental Distance: 4-6 cm Respiratory: Lungs clear Cardiovascular: Regular rate Plan Anesthesia Type: Total IV Consent for Procedure(s) Verified and Reviewed: Yes Code Status: Attempt Resuscitation ASA classification: 3-Severe systemic disease Is this case an emergency?: No
[2022-06-02] MEDS ORDERED: PROPOFOL 200 MG/20 ML VIAL IVP ONE (08:42)
[2022-06-02] MEDS ORDERED: PROPOFOL 500 MG/50 ML 500 MG/50 ML VIAL ONE (08:42)
[2022-06-02] MEDS ORDERED: MIDAZOLAM 2 MG/2 ML VIAL ONE (08:42)
[2022-06-02] MEDS ORDERED: LACTATED RINGERS 100 ML IV ONE (09:54)
[2022-06-02 11:39] VITALS: BP 128/78
--- NOTE | 2022-06-03 20:34 | ANESTHESIA POST OP EVALUATION ---
Anesthesia Post Eval - Post Anesthesia Eval Vitals: Last Vital Signs Temp 36.2 C L 06/02/22 10:00 Pulse 60 06/02/22 10:00 Resp 16 06/02/22 10:00 BP 128/78 06/02/22 10:00 Pulse Ox 98 06/02/22 10:00 O2 Flow Rate CV Function Including HR & BP: Stable Pain Control: Satisfactory Nausea & Vomiting: Negative Mental Status: Baseline Respiratory Status: Airway Patent Hydration Status: Satisfactory Anesthesia Complications: None
== END 2022-06-02 07:29 | disposition home or self-care (01) ==
LOC: SDS 07:28
PROVIDERS: ATTEND Surgery
PROC: 0DBL8ZZ Excision of Transverse Colon, Via Natural or Artificial Opening Endoscopic (ICD-10-PCS; 2022-06-02)
PROC: 0DBN8ZZ Excision of Sigmoid Colon, Via Natural or Artificial Opening Endoscopic (ICD-10-PCS; 2022-06-02)
PROC: 0DBK8ZZ Excision of Ascending Colon, Via Natural or Artificial Opening Endoscopic (ICD-10-PCS; principal; 2022-06-02 08:30)
DX: Z12.11 Encounter for screening for malignant neoplasm of colon (principal); D12.2 Benign neoplasm of ascending colon; D12.3 Benign neoplasm of transverse colon; D12.5 Benign neoplasm of sigmoid colon; K57.30 Diverticulosis of large intestine without perforation or abscess without bleeding; Z85.038 Personal history of other malignant neoplasm of large intestine; I48.91 Unspecified atrial fibrillation; I10 Essential (primary) hypertension; Z79.01 Long term (current) use of anticoagulants; E66.9 Obesity, unspecified; Z68.37 Body mass index [BMI] 37.0-37.9, adult; G47.30 Sleep apnea, unspecified; K21.9 Gastro-esophageal reflux disease without esophagitis; E03.9 Hypothyroidism, unspecified; K59.00 Constipation, unspecified
CPT/HCPCS: 45380; 45385; J7120

== ENCOUNTER 2022-09-01 10:05 | Emergency (ER) | payer MEDICARE, OTHER ==
[2022-09-01 10:13] VITALS: BP 136/77
[2022-09-01] MEDS ORDERED: LIDOCAINE 1%-EPI 1:100000 10 ML MDV SUBQ STA (10:28)
--- NOTE | 2022-09-01 10:38 | ED Physician Documentation ---
History of Present Illness - Stated complaint Stated Complaint: SWOLLEN RT FINGER - Chief complaint Chief Complaint: Wound - Additonal information Additional information: 9-year-old female presents with right fourth ring finger swelling. Swelling x2 days. Believes that she could have stubbed or struck her finger on a bogdan kuhn while doing some gardening. Has Ring in place that she has been unable to remove. PD PAST MEDICAL HISTORY - Past Medical History Cardiovascular: Hypertension, High cholesterol, Atrial fibrillation Respiratory: Sleep apnea, CPAP use Neuro: None Endocrine/Autoimmune: HyPOthyroidism GI: GERD, Colon polyps, Diverticulitis, Other CREDIT RISK MANAGER: None : Incontinence, Chronic bladder infection, Frequency HEENT: Chronic vision loss, Chronic sinusitis Psych: Depression, Anxiety Musculoskeletal: Osteoarthritis Derm: Other - Past Surgical History Past Surgical History: Yes General: Cholecystectomy, Colonoscopy Ortho: Hip replacement, Arthroscopic surgery /CREDIT RISK MANAGER: Hysterectomy HEENT: Cataracts, Tonsil/Adenoidectomy Derm: Skin cancer surgery - Present Medications Home Medications: Ambulatory Orders Medication Instructions Recorded Confirmed Levothyroxine Sodium [Levoxyl] 112 mcg PO DAILY 02/20/13 06/02/22 Verapamil ER [Calan SA] 240 mg PO DAILY 02/20/13 06/02/22 Cholecalciferol (Vitamin D3) 5,000 unit PO DAILY 02/21/13 06/02/22 [Vitamin D] Oxybutynin [Ditropan] 5 mg PO BID 02/21/13 06/02/22 Apixaban [Eliquis] 5 mg PO BID 03/29/19 06/02/22 Atorvastatin Calcium 10 mg PO DAILY 03/29/19 06/02/22 Propafenone HCl 150 mg PO BID 03/29/19 06/02/22 Ascorbic Acid [Vitamin C] 1,000 mg PO DAILY 05/30/20 06/02/22 Cinnamon 1,200 mg PO DAILY 05/30/20 05/22/22 estradioL vaginal [Estrace vaginal] 2 gm VG ONCE 05/30/20 06/02/22 Escitalopram [Lexapro] 5 tab PO HS 10/28/21 06/02/22 Doxycycline Hyclate 100 mg PO BID #20 tab 09/01/22 - Allergies Allergies/Adverse Reactions: Allergies Allergy/AdvReac Type Severity Reaction Status Date / Time adhesive Allergy Rash Verified 09/01/22 10:14 sulfamethoxazole Allergy Itching Verified 09/01/22 10:14 [From Bactrim] trimethoprim [From Bactrim] Allergy Itching Verified 09/01/22 10:14 - Social History Does the pt smoke?: No Smoking Status: Never smoker Does the pt drink ETOH?: Yes Does the pt have substance abuse?: No - Immunizations Immunizations are current?: No - POLST Patient has POLST: No PD ED PE NORMAL - General General: No: Alert and oriented X 3 - HEENT HEENT: No: Atraumatic - Neck Neck: No: Supple, no meningeal sign - Cardiac Cardiac: No: RRR - Respiratory Respiratory: No: No respiratory distress - Abdomen Abdomen: No: Normal bowel sounds - Female Female : No: Deferred - Rectal Rectal: No: Deferred - Back Back: No: No CVA TTP - Derm Derm: No: Normal color - Extremities Extremities: Other (Swelling and erythema noted along the dorsum of the distal aspect of the right fourth finger. Patient is able to flex and extend appropriately. There is no fluctuance or induration noted) - Neuro Neuro: No: Alert and oriented X 3 Results - Vitals Vitals: Vital Signs - 24 hr 09/01/22 10:12 Temperature 37 C Heart Rate 62 Respiratory 18 Rate Blood Pressure 136/77 H O2 Saturation 97 Oxygen O2 Source Room air Procedures - Regional nerve block - Minor Nerve block site: Digital - note digit(s) (Right fourth) Nerve block anesthesia: Lidocaine 1% Nerve block aftercare: Excellent anesthesia PD Medical Decision Making - ED course Complexity details: reviewed results, d/w patient ED course: To the emergency department with swelling to her right fourth finger in the setting of a ring that she is unable to remove. Presented with 2 days worth of symptoms. Had some erythema but no induration or fluctuance of be suggestive of paronychia or failure on. No tenderness with flexion or extension and no tenderness with palpation of the flexor sheath that would be of imminent concern for flexor tenosynovitis. She underwent a digital block in the emergency depart ment and her ring was removed. X-rays obtained were negative for fracture or foreign body. Will initiate short course doxycycline. We will encourage her toFollow-up with primary care return to the emergency department for new or worsening symptoms. Departure - Departure Disposition: 01 Home, Self Care Clinical Impression: Finger injury Instructions: ED Sprain Hand Prescriptions: Doxycycline Hyclate 100 mg PO BID #20 tab Comments: [facility] Today in the emergency department we removed a ring From your right fourth finger that was acting as a tourniquet. In the future if you ever have finger injuries or finger swelling of any kind in the future please remove all possible constricting jewelry. The x-rays taken today did not show any fracture or foreign body. The swelling you have at the end of your finger is somewhat concerning for infection and I would like you to begin a course of oral antibiotics. These were sent to your preferred pharmacy, [facility]. Please pick them up and take as directed. I do recommend increasing your intake and fiber for fluids and natural probiotics while on antibiotics. Please follow-up with your primary care doctor for medical recheck in the next few days. If it anytime you have new or worsening symptoms such as worsening pain or swelling please return to the emergency department.
[2022-09-01] MEDS ORDERED: LIDOCAINE 1%-EPI 1:100000 20 ML MDV SUBQ STA (10:44)
[2022-09-01] MEDS ORDERED: DOXYCYCLINE 100 MG TABLET PO STA (12:15)
--- NOTE | 2022-09-01 12:25 | XRAY Report ---
PROCEDURE: Finger(s) RT INDICATIONS: right 4th TECHNIQUE: AP hand, 2 views of the fourth finger(s) acquired. COMPARISON: None. FINDINGS: Bones: Moderate joint space narrowing and marginal osteophytes. No lytic or blastic lesion. No radio paque foreign body Soft tissues: No suspicious soft tissue calcifications or masses. IMPRESSION: Degenerative osteoarthritis without fracture or foreign body Reviewed by: Jorden Jacobs MD on 09/01/2022 11:24 AM AKDT Approved by: Jorden Jacobs MD on 09/01/2022 11:24 AM AKDT Station ID: [id number]
== END 2022-09-01 13:01 | disposition home or self-care (01) ==
LOC: ED 10:05
DX: S69.91XA Unspecified injury of right wrist, hand and finger(s), initial encounter (principal); X58.XXXA Exposure to other specified factors, initial encounter; S60.444A External constriction of right ring finger, initial encounter; W49.04XA Ring or other jewelry causing external constriction, initial encounter
CPT/HCPCS: 64450; 73140; 99283; A9270

== ENCOUNTER 2023-05-11 09:04 | Outpatient (CLI) | payer MEDICARE, OTHER ==
--- NOTE | 2023-05-11 15:37 | Mammography Report ---
BILATERAL DIGITAL SCREENING MAMMOGRAM 3D/2D: 05/11/2023 CLINICAL: Routine screening. Family history of breast cancer. Comparison is made to exams dated: 08/10/2021 mammogram, 06/29/2019 mammogram, and 08/26/2017 mammogram - [facility]. There are scattered areas of fibroglandular density in both breasts (category b / 25%-50% glandular t issue). No significant masses, calcifications, or other findings are seen in either breast. There has been no significant interval change. IMPRESSION: NEGATIVE There is no mammographic evidence of malignancy. A 1 year screening mammogram is recommended. Based on the Tyrer Cuzick model (a risk assessment model) the patients lifetime risk is 6.7% and her 10 year risk is 4.6%. According to the ACR, ACS, and NCCN guidelines, an annual breast MRI exam along with mammogram is recommended if the patients lifetime risk is 20% or greater. This exam was interpreted at Station ID: [id number]. NOTE: For mammograms, a report in lay terms will be sent to the patient. Approximately 15% of breast malignancies will not be visualized mammographically. In the management of a palpable breast mass, a negative mammogram must not discourage biopsy of a clinically suspicious lesion. Electronically Signed By: Eusebio swain/nena:05/11/2023 12:23:26 ACR BI-RADS Category 1: Negative 3341F PARENCHYMAL PATTERN: (A) - The breast(s) demonstrate(s) scattered fibroglandular densities. BI-RADS CATEGORY: (1) - 1 Mammogram [id number] 1 year screening LATERALITY: (B)
== END 2023-05-11 09:05 | disposition home or self-care (01) ==
LOC: DI.S 09:04
PROVIDERS: ATTEND Registered Nurse
DX: Z12.31 Encounter for screening mammogram for malignant neoplasm of breast (principal); Z80.3 Family history of malignant neoplasm of breast; R92.323 Mammographic fibroglandular density, bilateral breasts

== ENCOUNTER 2024-01-06 10:01 | Outpatient (CLI) | payer MEDICARE, OTHER ==
--- NOTE | 2024-01-06 11:09 | Sleep Patient Instructions ---
Sleep Center Visit Summary - Patient Visit Information Reason for Visit: Initial consultation - Patient Instructions Additional Instructions: You will continue with CPAP therapy with pressure set at 10 cmH2O. A supply prescription will be updated with your DME supplier. We encourage you to continue to try to lose weight. Please follow up with the sleep care office in 1 year. - Clinic Information Contact: [facility] [address] [place] [address] [email or web address] T: [phone]
--- NOTE | 2024-01-06 11:15 | SLEEP CARE CONSULTATION ---
Information from patient questionnaire entered by Beth Watts. I have reviewed and concur with the information entered by Beth Watts. This document represents the service I personally performed and the decisions made by me, Laina Rosenberg ARNP. History of Present Illness Service Date and Time: 01/06/2024 1001 Reason for Visit: New patient, sleep apnea on CPAP therapy, Re-establish care Chief Complaint: reports: Other (UPDATE SUPPLIES) Usual bedtime: 2230 Time it takes to fall asleep: 10-30MINS Snores at night: No Observed to quit breathing while asleep: No Sleeps alone due to snoring: No Number of times waking at night: 2-5 Reasons for waking at night: reports: Bathroom Toss, Turn, or Twitch while sleeping: Yes Recalls having dreams: Yes Usually gets out of bed at: 0700 Feels refreshed in the morning: Yes Morning headache: No Sleepy or fatigued during the day: Yes Ever fallen asleep while driving: Yes Takes day naps: Yes Dreams during day naps: No Prior sleep studies: Yes Year and Where: 2007 [facility] Additional HPI information: CHASE ALSTON was previously diagnosed to have mild, AHI 10.1, obstructive sleep apnea-hypopnea syndrome here at [facility] in 09/2007 and come in today to re-establish care for CPAP therapy. - Parasomnia Symptoms Ever been unable to move upon waking from sleep: No Walks in sleep: No Talks in sleep: Yes Ever acted out dreams in sleep: Yes Ever felt weak in the knees when startled or emotional: No Bothered by creepy, crawly, restless sensations in legs: Yes Problems with memory or concentration: Yes CPAP Compliance Data - Data Reviewed with Patient Average duration of nightly device use: 8 hours 8 minutes Compliance rate %: 100 (90/90 days used) Current pressure setting (cmH2O): 10 Average residual AHI: 1.1 Central apnea: 0.5 Obstructive apnea: 0.5 Average large leak: 0.1 L/min Compliance data discussion: She has a Resmed Airsense 10 that was set up on 07/2019. She used to get her supplies from [employer]. She is using a nasal cushion mask, Resmed AirFit N30i. Subjective Patient concerns: reports: air blowing in eyes (need new supplies), mask leak noise. denies: aerophagia, mask discomfort, condensation in mask/hose, nasal congestion, dry mouth, nose, throat, epistaxis Observed to snore while using device: No Current pressure setting perceived as: comfortable On therapy, patient: reports: sleeping better, awakening more refreshed, being more awake and alert during the day, more rested overall. 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 Patient is and lives in [place]. Have you smoked in the past 12 months: No Alcohol use: Yes Alcohol amount and frequency: 1-2 GLASSES WINE 3X WEEK OR LESS Caffeine use: Yes Caffeine amount and frequency: 1 SHOT CAFFINE 2 X WEEK Family History Family history of sleep disordered breathing: Yes Family Hx Sleep Apnea: Mother: Snoring, Sleep apnea - Untreated, Father: Snoring, Sleep apnea - Untreated, Sibling: Snoring, Sleep apnea - Untreated, Grandparent: Snoring, Sleep apnea - Untreated Allergies and Home Medications Known drug allergies: Yes ( LISTED) Drug allergies reviewed: Yes Home medication list reviewed: Yes (as listed) Allergy and home medication list: Allergies adhesive Allergy (Verified 01/06/24 10:02) Rash sulfamethoxazole [From Bactrim] Allergy (Verified 01/06/24 10:02) Itching trimethoprim [From Bactrim] Allergy (Verified 01/06/24 10:02) Itching Home Medications Medication Instructions Recorded Confirmed Last Taken Type Levothyroxine Sodium [Levoxyl] 112 mcg PO DAILY 02/20/13 01/06/24 06/02/22 History Verapamil ER [Calan SA] 240 mg PO DAILY 02/20/13 01/06/24 06/02/22 History Cholecalciferol (Vitamin D3) 5,000 unit PO DAILY 02/21/13 01/06/24 06/01/22 History [Vitamin D] Oxybutynin [Ditropan] 5 mg PO BID 02/21/13 01/06/24 06/02/22 History Apixaban [Eliquis] 5 mg PO BID 03/29/19 01/06/24 05/30/22 History Atorvastatin Calcium 10 mg PO DAILY 03/29/19 01/06/24 06/01/22 History Propafenone HCl 150 mg PO BID 03/29/19 01/06/24 06/02/22 History Ascorbic Acid [Vitamin C] 1,000 mg PO DAILY 05/30/20 01/06/24 06/02/22 History Cinnamon 1,200 mg PO DAILY 05/30/20 01/06/24 10/27/21 History estradioL vaginal [Estrace vaginal] 2 gm VG ONCE 05/30/20 01/06/24 05/28/22 History Escitalopram [Lexapro] 5 tab PO HS 10/28/21 01/06/24 06/01/22 History Acetaminophen [Tylenol] See Rx Instructions .ROUTE .COMPLEX 01/06/24 01/06/24 Unknown History Glucosamine HCl/Chondroitin Lowery See Rx Instructions .ROUTE .COMPLEX 01/06/24 01/06/24 Unknown History [Glucosamine-Chondroitin Cap] Review of Systems Weight gain over past 5 years: 25 Weight loss over past 5 years: 8 Cardiovascular: reports: high blood pressure, irregular heart rate or pulse Urinary: reports: incontinence, frequency, urgency Psychiatric: reports: anxiety, depression. denies: Attention Deficit Hyperactivity Ear/Nose/Throat: reports: nasal congestion, sinus problems, dry mouth/throat, wisdom teeth removed. denies: tonsillectomy Endocrine: reports: thyroid disease, increased urination Musculoskeletal: reports: joint pain, back pain, joint swelling, mobility problems Immunologic: reports: sneezing Physical Exam Vital signs obtained and entered by: BETH Arroyo MA Blood Pressure: 148/78 (LEFT ARM) Cuff size: long Heart Rate: 51 O2 Saturation: 97 Height: 5 ft 4.5 in Weight: 227 lb 3.2 oz Body Mass Index: 38.4 BMI Classification: Obese Neck circumference: 17.25 Impression and Plan 1. Obstructive Sleep Apnea-Hypopnea Syndrome, mild, with good treatment comp liance and good apnea control. On CPAP therapy, the patient has better sleep quality and is more rested overall. Patient was last seen here in 2020. She continues to use her machine regularly with significant improvement of her sleep apnea. Patient denies problems with oral dryness, nasal congestion, epistaxis, skin irritation or aerophagia. She needs supplies so we will update her supply prescription and send it to [facility]. Patient's apnea severity and rationale for treatment to reduce apnea, improve sleep quality and reduce cardiovascular and cerebrovascular events was reviewed. I also reviewed the benefit of consistent device use of CPAP for hypertension, arrhythmia, depression/anxiety. 2. Obesity, unspecified. Currently patients BMI is 38.4. She says she has lost weight recently. Obesity increases the risk of apnea, CPAP pressure requirements and overall health risks especially cardiovascular and diabetes. Thus patient is advised to continue to try to lose weight. * Continue CPAP pressure at 10 cmH2O * Update supply prescription * Notify me if snoring with mask or feeling that the pressure is too much or too little * Continue to try to lose weight * Call this office if any problems using CPAP * Return for follow up in 12 months, or sooner if concerns arise Continue with device pressure at (cmH2O): 10 Counseling Topics: Spare mask, Weight loss health impact Prescriptions: Device supplies Follow up with Sleep Care in: 1 year Visit Type: In Office Time Spent with Patient (minutes): 30 Provider Statement: I spent 100% of the Face to Face Visit with the patient with greater than 50% spent counseling the patient and coordination of care.
[2024-01-06 11:18] VITALS: BP 148/78; O2SAT 97
== END 2024-01-06 10:02 | disposition home or self-care (01) ==
LOC: SC 10:01
PROVIDERS: ATTEND Nurse Practitioner Family
DX: G47.33 Obstructive sleep apnea (adult) (pediatric) (principal); E66.9 Obesity, unspecified; Z68.34 Body mass index [BMI] 34.0-34.9, adult
CPT/HCPCS: 99203; G0463; 99212